=== PATIENT | male | born 1955 | race Caucasian/White ===

== ENCOUNTER 2016-02-13 12:55 | Inpatient (IN) | payer BC ==
[~2016-02-13] VITALS: Ht 182.9 cm; Wt 94.0 kg
[~2016-02-13 12:55] MED LIST: AMLO-147 PO; ATOR80TA75 PO; CARV3.1260 PO; ISOS10TA2 PO; NIT4 SL; RANO500T2 PO; RIVA10TA PO
[2016-02-13 12:59] VITALS: Ht 182.9 cm; Wt 94.0 kg
--- NOTE | 2016-02-13 15:29 | EN ---
Date/Time of Note Date/Time of Note DATE: 02/13/16 TIME: 15:23 ER Progress Note Patient is a 60-year-old male who originally complains of left-sided headache and right leg pain for 25 days. He was seen in all of you last week had a CAT scan of his head which was okay and his Tylenol. He has a history of 7 stents in 4 MIs and history of coronary vasospasm. His quenching car operator is Dr. Charlton. He had 2 episodes of chest pain last night and this morning, this is 2 episodes and 10 hours which is unusual for him. He usually has a chest pain once every 2 weeks. The pain was a squeezing sensation. Also has pain in his shoulder since yesterday and in his neck as well. He had TIA 3 years ago he is concerned that his headache is a TIA or stroke or other. He does not work he is on Social Security disability. Yesterday he did take 2 nitroglycerin but by the time he took the nitroglycerin his chest pain had already resolved. Chest tightness last 2-3 minutes. He is on atorvastatin Plavix Xarelto Imdur and amlodipine. Because of his multiple risk factors he is being transferred to the ER one for higher level of care. dr. de la torre is accepting. CARMEN SIMS DO Feb 13, 2016 15:28
[2016-02-13 17:02] LABS: BASOPHIL # 0.1 10^3/ul (0.0-0.1); BASOPHILS % 0.9 % (0.0-2.0); EOSINOPHILS # 0.3 10^3/ul (0.0-0.5); EOSINOPHILS % 2.5 % (0.0-7.0); HEMATOCRIT 48.7 % (42.0-52.0); HEMOGLOBIN 16.1 g/dl (14.0-18.0); LYMPHOCYTES # 2.4 10^3/ul (0.8-2.9); LYMPHOCYTES % 23.6 % (15.0-51.0); MEAN CORPUSCULAR HEMOGLOBIN 27.3 pg (29.0-33.0); MEAN CORPUSCULAR VOLUME 82.6 fl (82.0-101.0); MEAN PLATELET VOLUME 7.9 fl (7.4-10.4); MONOCYTE # 0.5 10^3/ul (0.3-0.9); MONOCYTES % 5.5 % (0.0-11.0); NEUTROPHIL # 6.7 10^3/ul (1.6-7.5); NEUTROPHILS % 67.5 % (39.0-77.0); PLATELET COUNT 220 10^3/UL (140-440); RED BLOOD COUNT 5.89 10^6/ul (4.70-6.10); RED CELL DISTRIBUTION WIDTH 15.1 % (11.5-14.5)
[2016-02-13 17:06] LABS: CONDITION 1; LH ANALYZER COMMENTS 1
[2016-02-13 17:09] LABS: CHLORIDE 105 mmol/L (97-110); INR 0.95; PARTIAL THROMBOPLASTIN TIME 26.2 Sec (25.0-35.0); PROTIME 12.7 Sec (12.2-14.2); SODIUM 143 mmol/L (135-144)
--- NOTE | 2016-02-13 17:09 | RADRPT ---
PROCEDURE: XR Chest. CLINICAL INDICATION: Chest pain TECHNIQUE: Chest AP portable. COMPARISON: 03/23/2015 FINDINGS: The mediastinal structures are unremarkable. The heart is normal in size and configuration. The pu lmonary vascularity is normal. The lung car are unremarkable. No consolidation is identified. The pleural spaces are unremarkable. The axial skeleton is unremarkable. IMPRESSION: No active intrathoracic disease. RPTAT: HGDB .Dm Sanderson MD, MD Date Time Electronically viewed and signed by .Dm Sanderson MD, MD on 02/13/2016 17:09 .B/
[2016-02-13 17:27] LABS: TROPONIN-I < 0.012 ng/ml (0.00-0.12)
[2016-02-13] MEDS ORDERED: morphine 4 MG/ML VIAL IV STA ×2 (17:29→18:10)
[2016-02-13 18:13] LABS: CREATININE 0.83 mg/dl (0.61-1.24)
[2016-02-13 18:14] LABS: ANION GAP 16 (8-16); BLOOD UREA NITROGEN 13 mg/dl (7-20); CALCIUM 9.1 mg/dl (8.4-10.2); CARBON DIOXIDE 26 mmol/L (21-31); GLUCOSE 89 mg/dl (70-220)
--- NOTE | 2016-02-13 18:33 | RADRPT ---
PROCEDURE: CT Head without. CLINICAL INDICATION: 50-year-old male with headache. TECHNIQUE: The study was performed utilizing a multi-slice, multidetector CT scanner. Direct spira l 1 mm axial sections were obtained through the head without the use of intravenous contrast materia l. Coronal and sagittal reformations were obtained. The images were reviewed on a PACS workstation. RADIATION DOSE: CTDIvol: 43.6 mGyDLP: 720.2 mGy-cm COMPARISON: 12/22/2015 FINDINGS: There is no intracranial hemorrhage, extra-axial fluid collection, mass lesion, midline shift or hyd rocephalus. The ventricles, sulci and cisterns are within normal limits. There are mild periventri cular and subcortical white matter hypodensity, likely related to chronic microangiopathic changes. The snider-white matter differentiation is preserved. The basal cisterns are patent. The midline st ructures are intact. The orbits, calvarium and extracranial soft tissues are normal in appearance. There are mild to moderate inflammatory changes of the bilateral ethmoid air cells. The frontal sin uses are normally aerated. The mastoid air cells and middle ear cavities are normally aerated. IMPRESSION: 1. No acute intracranial abnormality. No intracranial hemorrhage, extra-axial fluid collection, ma ss lesion or hydrocephalous. 2. Stable mild periventricular and subcortical white matter lesions, likely related to chronic micr oangiopathic changes. 3. Mild to moderate inflammatory changes of the paranasal sinuses. RPTAT: HGAS .Corey Yang MD, Date Time Electronically viewed and signed by .Corey Yang MD, MD on 02/13/2016 18:33 .S/
--- NOTE | 2016-02-13 18:48 | ERA ---
ER Documentation Chief Complaint Date/Time DATE: 02/13/16 TIME: 18:46 Chief Complaint vanessa and left leg pain HPI This is a 60-year-old male who presents to the emergency room and was originally seen in fast track and subsequently transferred to the main ER for evaluation. This patient presented initially for evaluation of a headache, chest pain, and right leg pain. The patient states that he has a history of multiple heart attacks, multiple stents, and states that he came to the ER for evaluation of this chest pain which she localizes to the center of his chest and describes as an achy pain with no radiation. ROS All systems reviewed and are negative except as per history of present illness. Medications Home Meds Active Scripts Isosorbide Dinitrate* (Isordil*) 10 Mg Tablet, 10 MG PO TID for 30 Days, TAB Prov:ALEJANDRA HOPKINS 01/12/16 Ranolazine* (Ranexa*) 500 Mg Tab.sr.12h, 500 MG PO Q12 for 30 Days, TAB Prov:ALEJANDRA HOPKINS 01/12/16 Carvedilol* (Carvedilol*) 3.125 Mg Tablet, 3.125 MG PO BID for 30 Days, TAB Prov:ALEJANDRA HOPKINS 01/12/16 Reported Medications Nitroglycerin* (Nitrostat*) 0.4 Mg Tab.subl, 0.4 MG SL Q5MIN Y for CHEST PAIN, BOTTLE 09/21/15 Atorvastatin* (Atorvastatin*) 80 Mg Tablet, 80 MG PO QHS, #30 TAB 08/20/15 Amlodipine Besylate* (Amlodipine Besylate*) 10 Mg Tablet, 10 MG PO DAILY, #30 TAB 08/20/15 Rivaroxaban* (Xarelto*) 10 Mg Tablet, 10 MG PO DAILY, TAB 08/20/15 Allergies Allergies: Coded Allergies: No Known Allergy (Unverified , 01/08/16) PMhx/Soc Anesthesia Reaction: No Hx Neurological Disorder: No Hx Respiratory Disorders: Yes (copd) Hx Psychiatric Problems: No Hx Miscellaneous Medical Probl: No Hx Alcohol Use: No Hx Substance Use: No Hx Tobacco Use: Yes Smoking Status: Current some day smoker Physical Exam Vitals Vital Signs Date Time Temp Pulse Resp B/P Pulse Ox O2 Delivery O2 Flow Rate FiO2 02/13/16 18:15 67 18 129/80 98 Room Air 02/13/16 16:53 98.1 79 18 135/91 98 Room Air 02/13/16 12:59 98.5 98 18 123/57 96 Physical Exam INITIAL VITAL SIGNS: Reviewed by me GENERAL: The patient is well developed and appropriate for usual state of health in no apparent distress HEENT: Pupils equal, round, and reactive to light. EOMI. There is no scleral icterus. NECK: C-spine is soft and supple, there is no meningismus. There is no cervical lymphadenopathy. LUNGS: Clear to auscultation bilaterally. There are no rales, wheezes or rhonchi. HEART: Regular rate and rhythm, no murmurs, clicks, rubs or gallops. ABDOMEN: Soft, non-tender, non-distended. There are bowel sounds in all four quadrants. No rebound or guarding. EXTREMITIES: There is no peripheral cyanosis or edema. No focal swelling or erythema. NEUROLOGICAL: The patient moves all four extremities with 5/5 strength. Cranial nerves II - XII are intact. Normal gait. Alert and oriented SKIN: There is no apparent rash or petechiae. HEME/LYMPHATIC: There is no evidence of excessive bruising or lymphedema. PSYCHIATRIC: The patient does not appear anxious or depressed. Result Diagram: 02/13/16 1650 02/13/16 1650 Results 24 hrs Laboratory Tests Test 02/13/16 16:50 Activated Partial Thromboplast Time 26.2Sec Anion Gap 16 Basophils # 0.110^3/ul Basophils % 0.9% Blood Morphology Comment Blood Urea Nitrogen 13mg/dl Calcium Level 9.1mg/dl Carbon Dioxide Level 26mmol/L Chloride Level 105mmol/L Creatinine 0.83mg/dl Eosinophils # 0.310^3/ul Eosinophils % 2.5% Glucose Level 89mg/dl Hematocrit 48.7% Hemoglobin 16.1g/dl INR International Normalized Ratio 0.95 Lymphocytes # 2.410^3/ul Lymphocytes % 23.6% Mean Corpuscular Hemoglobin 27.3pg Mean Corpuscular Hemoglobin Concent 33.0g/dl Mean Corpuscular Volume 82.6fl Mean Platelet Volume 7.9fl Monocytes # 0.510^3/ul Monocytes % 5.5% Neutrophils # 6.710^3/ul Neutrophils % 67.5% Nucleated Red Blood Cells # 0.010^3/ul Nucleated Red Blood Cells % 0.0/100WBC Platelet Count 51519^3/UL Potassium Level 4.0mmol/L Prothrombin Time 12.7Sec Prothrombin Time Ratio 1.0 Red Blood Count 5.8910^6/ul Red Cell Distribution Width 15.1% Sodium Level 143mmol/L Troponin I < 0.012ng/ml White Blood Count 10.010^3/ul Current Medications Medications (Trade) Dose Ordered Sig/Bre Route PRN Reason Start Time Stop Time Status Last Admin Dose Admin Morphine Sulfate (morphine) 4 mg ONCE STAT IV 02/13/16 17:29 02/13/16 17:30 DC 02/13/16 17:35 Morphine Sulfate (morphine) 4 mg ONCE STAT IV 02/13/16 18:10 02/13/16 18:11 DC 02/13/16 18:44 Procedures/MDM EKG: Rate/Rhythm: [Normal Sinus Rhythm] QRS, ST, T-waves: [No changes consistent w/ acute ischemia] Impression: [No evidence of ischemia or arrhythmia] Chest X-ray 1V Interpreted by me: Soft Tissue: No acute abnormalities Bones: No acute abnormalities Mediastinum/Cardiac Silhouette/Lungs: [No acute abnormalities] CT head without: No bleed, no stroke This 60-year-old male presents to the emergency room for evaluation of chest pain and headache. This patient does have a significant cardiac history. I did look in his previous medical records and it appears that he was admitted in the recent past and was supposed to undergo a cardiac catheterization however our Residential Substance Abuse Counselor was nonfunctional at that time. This patient was not able to schedule an outpatient angiogram with cardiology and presents today for a repeat a chest pain. Given this patient's history, and risk factors this patient will be placed in for admission at this time for possible elective angiogram for evaluation of coronary vessels, and previous stents. Departure Diagnosis: Primary Impression: Chest pain Condition: JUAN Watson DO Feb 13, 2016 18:48
[2016-02-13] MEDS ORDERED: ACETAMINOPHEN 325 MG TAB PO PRN ×2 (19:00→21:30)
[2016-02-13] MEDS ORDERED: ONDANSETRON 4 MG INJ IV PRN (19:00)
[2016-02-13] MEDS ORDERED: NITROGLYCERIN (SL) 0.4 MG TAB SL PRN (21:30)
[2016-02-13] MEDS ORDERED: NACL 0.9% 3 ML SYG IV SCH (21:30)
[2016-02-13 22:46] LABS: CREATINE KINASE 32 IU/L (23-200)
[2016-02-13 22:58] LABS: CK-MB 0.66 ng/ml (0.0-2.4)
[2016-02-13 23:03] LABS: TROPONIN-I < 0.012 ng/ml (0.00-0.12)
[2016-02-13] MEDS: morphine 2 MG INJ IV PRN (23:04)
[2016-02-13] MEDS: ONDANSETRON 4 MG INJ IV PRN (23:04)
[2016-02-14] VITALS (9 sets, daily range): BP systolic 93–101; BP diastolic 54–61; PULSE 63–77; RESP 16–69; TEMP 97.9
[2016-02-14] MEDS: morphine 2 MG INJ IV PRN ×6 (03:09→23:59)
[2016-02-14] MEDS: ONDANSETRON 4 MG INJ IV PRN (03:09)
[2016-02-14 06:07] LABS: BASOPHILS % 0.4 % (0.0-2.0); EOSINOPHILS # 0.3 10^3/ul (0.0-0.5); EOSINOPHILS % 3.6 % (0.0-7.0); HEMATOCRIT 47.3 % (42.0-52.0); HEMOGLOBIN 15.6 g/dl (14.0-18.0); LYMPHOCYTES # 2.4 10^3/ul (0.8-2.9); LYMPHOCYTES % 24.1 % (15.0-51.0); MEAN CORPUSCULAR HEMOGLOBIN 27.4 pg (29.0-33.0); MEAN CORPUSCULAR VOLUME 83.2 fl (82.0-101.0); MONOCYTE # 0.6 10^3/ul (0.3-0.9); MONOCYTES % 6.1 % (0.0-11.0); NEUTROPHIL # 6.4 10^3/ul (1.6-7.5); NEUTROPHILS % 65.8 % (39.0-77.0); PLATELET COUNT 210 10^3/UL (140-440); RED BLOOD COUNT 5.68 10^6/ul (4.70-6.10); RED CELL DISTRIBUTION WIDTH 15.9 % (11.5-14.5); UNCORRECTED WBC 9.8 10^3/ul (4.8-10.8); WHITE BLOOD COUNT 9.8 10^3/ul (4.8-10.8)
[2016-02-14 06:12] LABS: CONDITION 1; LH ANALYZER COMMENTS 1
[2016-02-14 06:30] LABS: ALBUMIN 3.5 g/dl (3.3-4.9); CREATINE KINASE 30 IU/L (23-200)
[2016-02-14 06:31] LABS: POTASSIUM 4.4 mmol/L (3.5-5.1)
[2016-02-14 06:33] LABS: BILIRUBIN,INDIRECT 0.5 mg/dl (0-1.1); BILIRUBIN,TOTAL 0.5 mg/dl (0.2-1.3); CREATININE 0.8 mg/dl (0.61-1.24)
[2016-02-14 06:34] LABS: ALBUMIN/GLOBULIN RATIO 1.34; CALCIUM 8.9 mg/dl (8.4-10.2); TOTAL PROTEIN 6.1 g/dl (6.1-8.1)
[2016-02-14 06:49] LABS: CK-MB 0.63 ng/ml (0.0-2.4); TROPONIN-I < 0.010 ng/ml (0.00-0.12)
[2016-02-14] MEDS: FAMOTIDINE 20 MG INJ IV SCH ×2 (09:01→19:42)
[2016-02-14] MEDS: ENOXAPARIN 30 MG/0.3 ML SYG SC SCH (09:01)
[2016-02-14] MEDS: RANOLAZINE (SR) 500 MG TAB PO SCH ×2 (09:01→19:42)
[2016-02-14] MEDS: ASPIRIN 81 MG TAB PO SCH (09:02)
[2016-02-14] MEDS: ISOSORBIDE DINITRATE 10 MG TAB PO SCH ×3 (09:03→19:46)
[2016-02-14] MEDS: AMLODIPINE 10 MG TAB PO SCH (09:03)
--- NOTE | 2016-02-14 10:55 | CONS ---
DATE OF ADMISSION: 02/13/2016 DATE OF CONSULTATION: 02/14/2016 REASON FOR CONSULTATION: Chest pain/acute coronary syndrome, as well as leg pain; rule out claudica tion. REQUESTING PHYSICIAN: Dr. Kelle Chew. HISTORY OF PRESENT ILLNESS: Mr. 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 Initially upon arrival, temperature 98.5, blood pressure 12 3/57, pulse 98, respiratory rate 18, saturating 96%. The patient's labs revealed a white count of 1 0.0, hemoglobin 6.1, platelet count 220. Sodium 143, potassium 4.0, creatinine 0.83, BUN 13. Tropo misa negative. INR 0.95. The patient underwent a chest x-ray revealing no acute cardiopulmonary abnormalities and a head CT revealed no acute intracranial abnormality and no intracranial hemorrhage, stable mild periventricul ar subcortical white matter lesions, mild to moderate inflammatory changes of the paranasal sinuses. The patient's electrocardiogram revealed sinus rhythm at a rate of 76, normal axis, normal interva ls with isolated T-wave flattening in aVL. The patient subsequently has been admitted to the floor and since admit to floor, has had negative troponins x2. The patient states he has had now recurren t episodes of substernal chest pain x2 lasting seconds to minutes at rest, described as a stabbing t o pressure-like component. Given these findings, cardiology consult has been requested. The patien t does continue to complain of leg pain and headache. PAST MEDICAL HISTORY: As above in HPI. MEDICATIONS CURRENTLY IN HOSPITAL: 1. Lipitor 80 mg at bedtime. 2. Aspirin 81 mg daily. 3. Pepcid 20 mg q.12h. 4. Lovenox 30 mg subcutaneous daily. 5. Norvasc 10 mg daily. 6. Carvedilol 3.125 mg p.o. b.i.d. 7. Isordil 10 mg p.o. t.i.d. 8. Ranexa 5 mg q.12h. 9. Zofran p.r.n. 10. Tylenol p.r.n. 11. Morphine p.r.n. 12. Sublingual nitroglycerin p.r.n. ALLERGIES: NO KNOWN DRUG ALLERGIES. SOCIAL HISTORY: Positive tobacco, social ETOH, no illicit drug use. FAMILY HISTORY: No history of sudden cardiac or early CAD. REVIEW OF SYSTEMS: As above in HPI. CONSTITUTIONAL: No fevers, chills. PULMONARY: No current shortness of breath. CARDIOVASCULAR: Intermittent chest pain. GASTROINTESTINAL: No vomiting. GENITOURINARY: No hematuria. MUSCULOSKELETAL: Degenerative joint disease. PSYCHIATRIC: The patient denies depression. NEUROLOGIC: No documented history of CVA. PHYSICAL EXAMINATION VITAL SIGNS: Temperature of 98, blood pressure most recently 109/77, pulse 64, respiratory rate 20, saturating 95% on 2 liters. GENERAL: The patient is alert, awake, complaining of headache, leg pain, intermittent chest pain. NECK: JVP approximately 8 cm water. CHEST: Fair air movement throughout. HEART: Regular rate and rhythm. Normal S1, S2, with a I/ systolic murmur, nondisplaced PMI. ABDOMEN: Positive bowel sounds, soft. EXTREMITIES: No pitting edema, 1+ pulses bilaterally, posterior tibial. LABORATORY DATA: Most recent from today, troponin negative x3. Sodium 144, potassium 4.4, creatini ne 0.8. AST 24, ALT 39, white count 9.8, hemoglobin 15.6, platelet count of 210. INR 0.95. IMAGING STUDIES: As above in HPI. No further imaging studies for my review at this time. ECG: As above in HPI. No further electrocardiograms for my review at this time. IMPRESSION: 1. Chest pain, assess for acute coronary syndrome, somewhat atypical at this time. 2. Abnormal electrocardiogram with isolated T-wave flattening in aVL. 3. Leg pain, rule out claudication, peripheral arterial disease. 4. Hypertension with borderline hypotension at this time on multiple antihypertensives and antiangi nal medications. 5. Headache. 6. Anxiety. 7. History of vasospastic angina. 8. History of percutaneous transluminal coronary angioplasty and stent placement with stents patent by catheterization in May 2015. RECOMMENDATIONS: 1. At this time, would maintain the patient on telemetry monitoring to follow rhythm and rate contr ol closely. 2. Recheck serial EKGs to assess for any significant ongoing changes. EKG in the morning, EKG for complaints of chest pain or change in rhythm. 3. Continue the patient's baseline aspirin and will additionally continue the patient's baseline st atin. 4. Continue the patient's baseline antianginal medications ____ and Isordil as well as calcium lamas romaine blockers and beta blockers. Follow the patient's blood pressure closely. 5. We will check a lower extremity arterial ultrasound to assess for any significant peripheral art erial disease lending to pain and patient will have ongoing evaluation for headache per PMD and alte rnative consultations. The patient is status post most recent echo December 2015, at that time revealing a preserved EF of 50% with associated diastolic dysfunction. We will additionally consider stress testing in this [facility] to further assess for the possibility of recurrent significant obstructive coronary artery dise ase lending to his symptoms of chest pain. Thank you for allowing me to take part in the care of this patient. I will continue to follow very closely with you with further recommendations to be made as the patient progresses through his [facility] clinical course. Dictated By: EDUARDO BARNETT/ANDRA Conf#: [id number] DID#: [id number] CC: CESAR SNYDER MD;*EndCC*
--- NOTE | 2016-02-14 12:16 | HP ---
Date/Time of Note Date/Time of Note DATE: 02/14/16 TIME: 12:14 Assessment/Plan VTE Prophylaxis VTE Prophylaxis Intervention: LMWH Lines/Catheters IV Catheter Type (from Nrs): Saline Lock Assessment/Plan Chief Complaint/Hosp Course 1) chest pain, coronary artery disease - work up per cardiology Problems: HPI/ROS Admit Date/Time Admit Date/Time Feb 13, 2016 at 18:46 Hx of Present Illness Patient with hypertension, hypercholesterolemia, coronary artery disease come in with chest pain. Patient was recently to have angiogram but was cancelled because of logistic difficulties. Patient sees Dr. Charlton for cardiology. PMH/Family/Social Past Medical History Medical History: coronary artery disease, high cholesterol, hypertension Past Surgical History Past Surgical Hx: noncontributory Social History Smoking Status: Current every day smoker Exam/Review of Systems Vital Signs Vitals Vital Signs Date Time Temp Pulse Resp B/P Pulse Ox O2 Delivery O2 Flow Rate FiO2 02/14/16 11:47 97.8 81 18 101/58 92 02/14/16 08:30 Nasal Cannula 2.0 Exam Constitutional: alert, well developed Head: atraumatic, normocephalic Neck: supple Respiratory: clear to auscultation Cardiovascular: regular rate and rhythm Gastrointestinal: non-tender, soft Labs Result Diagram: 02/14/16 0535 02/14/16 0535 Medications Medications Current Medications Ondansetron HCl (Zofran Inj) 4 mg Q6H PRN IV NAUSEA AND/OR VOMITING Last administered on 02/14/16 03:09; Admin Dose 4 MG; Start 02/13/16 at 21:30 Aspirin (Aspirin) 81 mg DAILY PO Last administered on 02/14/16 09:02; Admin Dose 81 MG; Start 02/14/16 at 09:00 Acetaminophen (Tylenol Tab) 650 mg Q6H PRN PO PAIN LEVEL 1-3 OR FEVER; Start at 21:30 Morphine Sulfate (morphine) 2 mg Q4H PRN IV PAIN LEVEL 7-10 Last administered on 02/14/16 11:19; Admin Dose 2 MG; Start 02/13/16 at 21:30 Famotidine (Pepcid Iv) 20 mg Q12 IV Last administered on 02/14/16 09:01; Admin Dose 20 MG; Start 02/14/16 at 09:00 Enoxaparin Sodium (Lovenox) 30 mg DAILY SC Last administered on 02/14/16 09:01 ; Admin Dose 30 MG; Start 02/14/16 at 09:00 Amlodipine Besylate (Norvasc) 10 mg DAILY PO Last administered on 02/14/16 09: 03; Admin Dose 10 MG; Start 02/14/16 at 09:00 Atorvastatin Calcium (Lipitor) 80 mg QHS PO ; Start 02/14/16 at 21:00 Carvedilol (Coreg) 3.125 mg BID PO Last administered on 02/14/16 09:02; Admin Dose 3.125 MG; Start 02/14/16 at 09:00 Isosorbide Dinitrate (Isordil) 10 mg TID PO Last administered on 02/14/16 09:03 ; Admin Dose 10 MG; Start 02/14/16 at 09:00 Nitroglycerin (Nitroglycerin (Sl Tab) 0.4 Mg) 1 tab [id number] PRN SL CHEST PAIN ; Start 02/13/16 at 21:30 Ranolazine (Ranexa) 500 mg Q12 PO Last administered on 02/14/16 09:01; Admin Dose 500 MG; Start 02/14/16 at 09:00 JORGE CASTILLO Feb 14, 2016 12:16
--- NOTE | 2016-02-14 17:25 | RADRPT ---
PROCEDURE: US bilateral lower extremity arteries. CLINICAL INDICATION: Bilateral leg pain. Claudication that interferes significantly with the collette ent's lifestyle. TECHNIQUE: Multiple longitudinal and transverse images of the bilateral lower extremity arteries w ere obtained with snider scale, pulsed Doppler, and color Doppler imaging. COMPARISON: No prior studies are available for comparison. FINDINGS: Right DIGITAL MARKETING ASSISTANT:98 cm/sec PSFA:60 cm/sec MSFA:72 cm/sec DSFA:84 cm/sec POP:58 cm/sec NETWORKING SPECIALIST:63 cm/sec DPA:29 cm/sec Left DIGITAL MARKETING ASSISTANT:84 cm/sec PSFA:65 cm/sec MSFA:66 cm/sec DSFA:77 cm/sec POP:57 cm/sec NETWORKING SPECIALIST:71 cm/sec DPA:58 cm/sec The right ankle-brachial index is 1.0 and the left ankle-brachial index is 1.0. There is normal triphasic flow throughout bilaterally. There is no plaque, stenosis, or occlusion. IMPRESSION: 1. Normal bilateral lower extremity arterial Doppler. RPTAT: QQ .Viraj Ulrich MD, Date Time Electronically viewed and signed by .Viraj Ulrich MD, on 02/14/2016 17:25 .R/
[2016-02-14] MEDS: ATORVASTATIN 80 MG TAB PO SCH (22:24)
[2016-02-15] VITALS (11 sets, daily range): BP systolic 96–121; BP diastolic 60–68; PULSE 67–80; RESP 16–18
[2016-02-15] MEDS: morphine 2 MG INJ IV PRN ×4 (04:00→18:57)
[2016-02-15] MEDS: ASPIRIN 81 MG TAB PO SCH (08:06)
[2016-02-15] MEDS: RANOLAZINE (SR) 500 MG TAB PO SCH ×2 (08:06→20:52)
[2016-02-15] MEDS: FAMOTIDINE 20 MG INJ IV SCH ×2 (08:07→20:51)
[2016-02-15 08:11] LABS: CHOLESTEROL 174 mg/dl (100-200); TRIGLYCERIDES 220 mg/dl (0-149)
[2016-02-15 08:12] LABS: CHOL/HDL RATIO 8.2 RATIO; HDL CHOLESTEROL 21 mg/dl (30-78)
[2016-02-15 08:17] LABS: TROPONIN-I < 0.012 ng/ml (0.00-0.12)
[2016-02-15] MEDS: ENOXAPARIN 30 MG/0.3 ML SYG SC SCH (08:20)
[2016-02-15] MEDS: ISOSORBIDE DINITRATE 10 MG TAB PO SCH ×3 (08:22→20:52)
[2016-02-15] MEDS: AMLODIPINE 10 MG TAB PO SCH (08:23)
--- NOTE | 2016-02-15 12:26 | CONS ---
Date/Time of Note Date/Time of Note DATE: 02/15/16 TIME: 12:22 Assessment/Plan Assessment/Plan Chief Complaint/Hosp Course IMPRESSION: 1. Chest pain, assess for acute coronary syndrome, somewhat atypical at this time.-negative troponin x 3 2. Abnormal electrocardiogram with isolated T-wave flattening in aVL. 3. Leg pain, rule out claudication, peripheral arterial disease. 4. Hypertension with borderline hypotension at this time on multiple antihypertensives and antianginal medications. 5. Headache. 6. Anxiety. 7. History of vasospastic angina. 8. History of percutaneous transluminal coronary angioplasty and stent placement with stents patent by catheterization in May 2015. Recc: -Tele -Continue norvasc/oral nitrtaes/BB as tolerated and weill decrease dose to allow to better tolerate -Continue asa/statin -Stress test today Problems: Consultation Date/Type/Reason Admit Date/Time Feb 13, 2016 at 18:46 Initial Consult Date 02/15/2016 Type of Consultation: Cardiology Reason for Consultation Chest pain Referring Provider: JORGE CASTILLO Exam/Review of Systems Vital Signs Vitals Vital Signs Date Time Temp Pulse Resp B/P Pulse Ox O2 Delivery O2 Flow Rate FiO2 02/15/16 08:14 71 02/15/16 07:33 98.1 18 96/61 96 02/14/16 08:30 Nasal Cannula 2.0 Intake and Output 02/14/16 02/14/16 02/15/16 15:00 23:00 07:00 Intake Total 640 ml 700 ml Balance 640 ml 700 ml Exam Review of Systems: CONSTITUTIONAL: No fevers, chills. PULMONARY: No sob CARDIOVASCULAR: intermittent chest pain/palpitations GASTROINTESTINAL: No nausea/vomiting. GENITOURINARY: No hematuria/dysuria. MUSCULOSKELETAL: No myagias/arthalgias. PSYCHIATRIC: The patient denies depression. NEUROLOGIC: No weakness Constitutional: alert, oriented Psych: no complaints Head: normocephalic ENMT: mucosa pink and moist Neck: jvd (9 cm water), supple Respiratory: clear to auscultation Cardiovascular: regular rate and rhythm Gastrointestinal: non-tender, soft Musculoskeletal: muscle tone (normal) Extremities: edema (none) Neurological: other (No focal deficits) Results Result Diagram: 02/14/16 0535 02/14/16 0535 Results 24 hrs Laboratory Tests Test 02/15/16 06:45 Cholesterol Level 174 Cholesterol/HDL Ratio 8.2 HDL Cholesterol 21 L LDL Cholesterol, Calculated 109 Triglycerides Level 220 H Troponin I < 0.012 Medications Medications Current Medications Ondansetron HCl (Zofran Inj) 4 mg Q6H PRN IV NAUSEA AND/OR VOMITING Last administered on 02/14/16 03:09; Admin Dose 4 MG; Start 02/13/16 at 21:30 Aspirin (Aspirin) 81 mg DAILY PO Last administered on 02/15/16 08:06; Admin Dose 81 MG; Start 02/14/16 at 09:00 Acetaminophen (Tylenol Tab) 650 mg Q6H PRN PO PAIN LEVEL 1-3 OR FEVER; Start at 21:30 Morphine Sulfate (morphine) 2 mg Q4H PRN IV PAIN LEVEL 7-10 Last administered on 02/15/16 08:13; Admin Dose 2 MG; Start 02/13/16 at 21:30 Famotidine (Pepcid Iv) 20 mg Q12 IV Last administered on 02/15/16 08:07; Admin Dose 20 MG; Start 02/14/16 at 09:00 Enoxaparin Sodium (Lovenox) 30 mg DAILY SC Last administered on 02/15/16 08:20 ; Admin Dose 30 MG; Start 02/14/16 at 09:00 Amlodipine Besylate (Norvasc) 10 mg DAILY PO Last administered on 02/14/16 09: 03; Admin Dose 10 MG; Start 02/14/16 at 09:00 Atorvastatin Calcium (Lipitor) 80 mg QHS PO Last administered on 02/14/16 22:24 ; Admin Dose 80 MG; Start 02/14/16 at 21:00 Carvedilol (Coreg) 3.125 mg BID PO Last administered on 02/14/16 19:46; Admin Dose 3.125 MG; Start 02/14/16 at 09:00 Isosorbide Dinitrate (Isordil) 10 mg TID PO Last administered on 02/14/16 19:46 ; Admin Dose 10 MG; Start 02/14/16 at 09:00 Nitroglycerin (Nitroglycerin (Sl Tab) 0.4 Mg) 1 tab [id number] PRN SL CHEST PAIN ; Start 02/13/16 at 21:30 Ranolazine (Ranexa) 500 mg Q12 PO Last administered on 02/15/16t 08:06; Admin Dose 500 MG; Start 02/14/16 at 09:00 EDUARDO ROME Feb 15, 2016 12:26
--- NOTE | 2016-02-15 12:27 | PN ---
Date/Time of Note Date/Time of Note DATE: 02/15/16 TIME: 12:26 Assessment/Plan VTE Prophylaxis VTE Prophylaxis Intervention: LMWH Lines/Catheters IV Catheter Type (from Nrs): Saline Lock Assessment/Plan Chief Complaint/Hosp Course 1) chest pain, coronary artery disease - work up per cardiology Problems: Subjective 24 Hr Interval Summary Free Text/Dictation Patient is away from room, having stress test Exam/Review of Systems Vital Signs Vitals Vital Signs Date Time Temp Pulse Resp B/P Pulse Ox O2 Delivery O2 Flow Rate FiO2 02/15/16 12:24 69 02/15/16 07:33 98.1 18 96/61 96 02/14/16 08:30 Nasal Cannula 2.0 Intake and Output 02/14/16 02/14/16 02/15/16 15:00 23:00 07:00 Intake Total 640 ml 700 ml Balance 640 ml 700 ml Exam Unable to examine as he is away from room Results Result Diagram: 02/14/16 0535 02/14/16 0535 Results 24 hrs Laboratory Tests Test 02/15/16 06:45 Cholesterol Level 174 Cholesterol/HDL Ratio 8.2 HDL Cholesterol 21 L LDL Cholesterol, Calculated 109 Triglycerides Level 220 H Troponin I < 0.012 Medications Medications Current Medications Ondansetron HCl (Zofran Inj) 4 mg Q6H PRN IV NAUSEA AND/OR VOMITING Last administered on 02/14/16 03:09; Admin Dose 4 MG; Start 02/13/16 at 21:30 Aspirin (Aspirin) 81 mg DAILY PO Last administered on 02/15/16 08:06; Admin Dose 81 MG; Start 02/14/16 at 09:00 Acetaminophen (Tylenol Tab) 650 mg Q6H PRN PO PAIN LEVEL 1-3 OR FEVER; Start at 21:30 Morphine Sulfate (morphine) 2 mg Q4H PRN IV PAIN LEVEL 7-10 Last administered on 02/15/16 08:13; Admin Dose 2 MG; Start 02/13/16 at 21:30 Famotidine (Pepcid Iv) 20 mg Q12 IV Last administered on 02/15/16 08:07; Admin Dose 20 MG; Start 02/14/16 at 09:00 Enoxaparin Sodium (Lovenox) 30 mg DAILY SC Last administered on 02/15/16 08:20 ; Admin Dose 30 MG; Start 02/14/16 at 09:00 Amlodipine Besylate (Norvasc) 10 mg DAILY PO Last administered on 02/14/16 09: 03; Admin Dose 10 MG; Start 02/14/16 at 09:00 Atorvastatin Calcium (Lipitor) 80 mg QHS PO Last administered on 02/14/16 22:24 ; Admin Dose 80 MG; Start 02/14/16 at 21:00 Carvedilol (Coreg) 3.125 mg BID PO Last administered on 02/14/16 19:46; Admin Dose 3.125 MG; Start 02/14/16 at 09:00 Isosorbide Dinitrate (Isordil) 10 mg TID PO Last administered on 02/14/16 19:46 ; Admin Dose 10 MG; Start 02/14/16 at 09:00 Nitroglycerin (Nitroglycerin (Sl Tab) 0.4 Mg) 1 tab [id number] PRN SL CHEST PAIN ; Start 02/13/16 at 21:30 Ranolazine (Ranexa) 500 mg Q12 PO Last administered on 02/15/16 08:06; Admin Dose 500 MG; Start 02/14/16 at 09:00 JORGE CASTILLO Feb 15, 2016 12:27
[2016-02-15] MEDS ORDERED: REGADENOSON 0.4 MG/5 ML SYG ONE (12:59)
--- NOTE | 2016-02-15 13:40 | RADRPT ---
Vent Rate: 72 bpm RR Interval: 0 msec MI Interval: 184 msec QRS Duration: 90 msec QT Interval: 386 msec QTC Interval: 422 msec P-R-T [place]: 67 - 76 - 66 degrees Normal sinus rhythm Normal ECG Electronically Signed By: Ez Doyle [id number]
--- NOTE | 2016-02-15 14:00 | CARRPT ---
DATE OF PROCEDURE: 02/15/2016 LEXISCAN CARDIAC STRESS TEST REASON FOR LEXISCAN STRESS TEST: Chest pain, assess for ischemia. BASELINE VITAL SIGNS AND ELECTROCARDIOGRAM: Pulse 68, blood pressure 112/73. Electrocardiogram rev eals normal sinus rhythm, rate of 68, normal axis, normal intervals, isolated T-wave flattening in a VL as single PVC. PROCEDURE: The patient underwent standard Lexiscan infusion protocol over 10 seconds followed by ra diolabeled tracer. The patient's test was stopped due to completion of protocol. Maximal achieved blood pressure during the test 112/76. Maximum heart rate during the test 105. ELECTROCARDIOGRAM FINDINGS: The patient did not develop any new Lexiscan-induced ST or T-wave brown es from baseline abnormalities. Had had occasional PVCs. SYMPTOMS: The patient had complaints of shortness of breath and chest pain during stress test which resolved in recovery. IMPRESSION: 1. No Lexiscan-induced ST or T-wave changes from baseline abnormalities or diagnostic cardiac ische mike. 2. Complaints of shortness of breath and chest pain during short stress test that resolved in recov becky. 3. Occasional premature ventricular contractions during stress. 4. Report of nuclear images to follow in separate dictation. Dictated By: EDUARDO BARNETT/ANDRA Conf#: [id number] DID#: [id number] CC: JORGE CASTILLO MD;*EndCC*
--- NOTE | 2016-02-15 14:09 | RADRPT ---
PROCEDURE: Lexiscan myocardial perfusion study CLINICAL INDICATION: 60 -year-old patient complaining of chest pain. TECHNIQUE: Lexiscan 0.4 mg intravenously separate acquisition gated myocardial perfusion SPECT usi ng Tc 99m Myoview mCi intravenously at stress and Tc-99m Myoview, mCi intravenously at rest was pe rformed using the rest/stress sequence. Poststress Myoview SPECT images were obtained in the supine position. COMPARISON: April 17, 2015 be FINDINGS: Perfusion images reveal an unchanged moderate size moderate in degree nonreversible perfusion defect in the inferoapical and inferior hannah. Lexiscan post stress gated SPECT images demonstrate no wall motion abnormalities. IMPRESSION: 1. The type and distribution of the scintigraphic abnormalities are most consistent with an unchang ed moderate-sized nonreversible perfusion defect in the inferoapical and inferior hannah. 2. No wall motion abnormalities. 3. The left ventricle ejection fraction at stress is 49% (prior EF was 57%). A call report was made to Dr. Charlton at 02:05 p.m. on February 15, 2016. RPTAT: HH .Sara Grier MD, Date Time Electronically viewed and signed by .Sara Grier MD, on 02/15/2016 14:09 .L/
[2016-02-15] MEDS: ONDANSETRON 4 MG INJ IV PRN (18:57)
[2016-02-15] MEDS: ATORVASTATIN 80 MG TAB PO SCH (20:52)
[2016-02-15] MEDS ORDERED: ZOLPIDEM 5 MG TAB PO PRN (23:00)
[2016-02-15] MEDS: HYDROmorphONE 1 MG/ML SYG IV PRN (23:09)
[2016-02-15] MEDS: MAGNESIUM HYDROXIDE 30ML CUP PO PRN (23:09)
[2016-02-16] VITALS (9 sets, daily range): BP systolic 100–107; BP diastolic 57–73; PULSE 63–78; RESP 16–19
[2016-02-16] MEDS: HYDROmorphONE 1 MG/ML SYG IV PRN ×4 (03:27→16:10)
[2016-02-16] MEDS: RANOLAZINE (SR) 500 MG TAB PO SCH (08:04)
[2016-02-16] MEDS: FAMOTIDINE 20 MG INJ IV SCH (08:04)
[2016-02-16] MEDS: ASPIRIN 81 MG TAB PO SCH (08:04)
[2016-02-16] MEDS: ENOXAPARIN 30 MG/0.3 ML SYG SC SCH (08:19)
[2016-02-16] MEDS: ISOSORBIDE DINITRATE 10 MG TAB PO SCH ×2 (09:00→12:06)
[2016-02-16] MEDS: AMLODIPINE 10 MG TAB PO SCH (09:00)
[2016-02-16] MEDS: ONDANSETRON 4 MG INJ IV PRN (12:02)
[2016-02-16] MEDS: MAGNESIUM HYDROXIDE 30ML CUP PO PRN (12:08)
--- NOTE | 2016-02-16 12:32 | CONS ---
Date/Time of Note Date/Time of Note DATE: 02/16/16 TIME: 12:28 Assessment/Plan Assessment/Plan Chief Complaint/Hosp Course IMPRESSION: 1. Chest pain, assess for acute coronary syndrome, somewhat atypical at this time.-negative troponin x 3. Now s/p lexiscan with no ischemia only scar. EF 49% 2. Abnormal electrocardiogram with isolated T-wave flattening in aVL. 3. Leg pain, rule out claudication, peripheral arterial disease.-Arterial GEORGE with no sig PAD and NL CHACORTA 4. Hypertension with borderline hypotension at this time on multiple antihypertensives and antianginal medications. 5. Headache. 6. Anxiety. 7. History of vasospastic angina. 8. History of percutaneous transluminal coronary angioplasty and stent placement with stents patent by catheterization in May 2015. Recc: -Tele -Continue norvasc/oral nitrates as toleratet for treatment of vasospastic angina -Will hold BB at this time given marginal BP -Continue asa/statin -resume plavix for stent patency and will d/c asa as he is on xarelto as well as outpatient for hypercoag disorder -Pain control Problems: Consultation Date/Type/Reason Admit Date/Time Feb 13, 2016 at 18:46 Initial Consult Date 02/15/2016 Type of Consultation: Cardiology Reason for Consultation Chest pain/leg pain Referring Provider: JORGE CASTILLO Exam/Review of Systems Vital Signs Vitals Vital Signs Date Time Temp Pulse Resp B/P Pulse Ox O2 Delivery O2 Flow Rate FiO2 02/16/16 12:23 63 02/16/16 11:45 98.3 18 101/65 90 02/15/16 18:00 21 02/15/16 08:30 3.0 02/14/16 08:30 Nasal Cannula Intake and Output 02/15/16 02/15/16 02/16/16 15:00 23:00 07:00 Intake Total 300 ml 400 ml Balance 300 ml 400 ml Exam Review of Systems: CONSTITUTIONAL: No fevers, chills. PULMONARY: No sob CARDIOVASCULAR: No chest pain/palpitations GASTROINTESTINAL: No nausea/vomiting. GENITOURINARY: No hematuria/dysuria. MUSCULOSKELETAL: No myagias/arthalgias. PSYCHIATRIC: The patient denies depression. NEUROLOGIC: HEadache ongoing Constitutional: alert, oriented Psych: no complaints Head: normocephalic ENMT: mucosa pink and moist Neck: jvd (8 cm water), supple Respiratory: clear to auscultation Cardiovascular: regular rate and rhythm Gastrointestinal: non-tender, soft Musculoskeletal: muscle tone (normal) Extremities: edema (none) Neurological: other (No focal deficits) Results Result Diagram: 02/14/16 0535 02/14/16 0535 Medications Medications Current Medications Ondansetron HCl (Zofran Inj) 4 mg Q6H PRN IV NAUSEA AND/OR VOMITING Last administered on 02/16/16 12:02; Admin Dose 4 MG; Start 02/13/16 at 21:30 Aspirin (Aspirin) 81 mg DAILY PO Last administered on 02/16/16 08:04; Admin Dose 81 MG; Start 02/14/16 at 09:00 Acetaminophen (Tylenol Tab) 650 mg Q6H PRN PO PAIN LEVEL 1-3 OR FEVER; Start at 21:30 Famotidine (Pepcid Iv) 20 mg Q12 IV Last administered on 02/16/16 08:04; Admin Dose 20 MG; Start 02/14/16 at 09:00 Enoxaparin Sodium (Lovenox) 30 mg DAILY SC Last administered on 02/16/16 08:19 ; Admin Dose 30 MG; Start 02/14/16 at 09:00 Amlodipine Besylate (Norvasc) 10 mg DAILY PO Last administered on 02/14/16 09: 03; Admin Dose 10 MG; Start 02/14/16 at 09:00 Atorvastatin Calcium (Lipitor) 80 mg QHS PO Last administered on 02/15/16 20:52 ; Admin Dose 80 MG; Start 02/14/16 at 21:00 Carvedilol (Coreg) 3.125 mg BID PO Last administered on 02/15/16 20:52; Admin Dose 3.125 MG; Start 02/14/16 at 09:00 Isosorbide Dinitrate (Isordil) 10 mg TID PO Last administered on 02/14/16 19:46 ; Admin Dose 10 MG; Start 02/14/16 at 09:00 Nitroglycerin (Nitroglycerin (Sl Tab) 0.4 Mg) 1 tab [id number] PRN SL CHEST PAIN ; Start 02/13/16 at 21:30 Ranolazine (Ranexa) 500 mg Q12 PO Last administered on 02/16/16 08:04; Admin Dose 500 MG; Start 02/14/16 at 09:00 Hydromorphone HCl (Dilaudid) 1 mg Q4H PRN IV PAIN Last administered on 12:03; Admin Dose 1 MG; Start 02/15/16 at 23:00 Magnesium Hydroxide (Milk Of Mag) 30 ml DAILY PRN PO CONSTIPATION Last administered on 02/16/16 12:08; Admin Dose 30 ML; Start 02/15/16 at 23:00 Zolpidem Tartrate (Ambien) 5 mg HS PRN PO SLEEP Last administered on 02/15/16 23:09; Admin Dose 5 MG; Start 02/15/16 at 23:00 EDUARDO ROME Feb 16, 2016 12:32
--- NOTE | 2016-02-16 14:54 | DS ---
Date/Time of Note Date/Time of Note DATE: 02/16/16 TIME: 14:53 Discharge Summary Admission/Discharge Info Admit Date/Time Feb 13, 2016 at 18:46 Discharge Date/Time 02/16/16 Final Diagnosis 1) chest pain 2) coronary artery disease Patient Condition: Fair Hx of Present Illness Patient with hypertension, hypercholesterolemia, coronary artery disease come in with chest pain. Patient was recently to have angiogram but was cancelled because of logistic difficulties. Patient sees Dr. Charlton for cardiology. Hospital Course IMPRESSION: 1. Chest pain, assess for acute coronary syndrome, somewhat atypical at this time.-negative troponin x 3. Now s/p lexiscan with no ischemia only scar. EF 49% 2. Abnormal electrocardiogram with isolated T-wave flattening in aVL. 3. Leg pain, rule out claudication, peripheral arterial disease.-Arterial GEORGE with no sig PAD and NL CHACORTA 4. Hypertension with borderline hypotension at this time on multiple antihypertensives and antianginal medications. 5. Headache. 6. Anxiety. 7. History of vasospastic angina. 8. History of percutaneous transluminal coronary angioplasty and stent placement with stents patent by catheterization in May 2015. Recc: -Tele -Continue norvasc/oral nitrates as toleratet for treatment of vasospastic angina -Will hold BB at this time given marginal BP -Continue asa/statin -resume plavix for stent patency and will d/c asa as he is on xarelto as well as outpatient for hypercoag disorder -Pain control Home Meds Active Scripts Isosorbide Dinitrate* (Isordil*) 10 Mg Tablet, 10 MG PO TID for 30 Days, TAB Prov:ALEJANDRA HOPKINS 01/12/16 Ranolazine* (Ranexa*) 500 Mg Tab.sr.12h, 500 MG PO Q12 for 30 Days, TAB Prov:ALEJANDRA HOPKINS 01/12/16 Carvedilol* (Carvedilol*) 3.125 Mg Tablet, 3.125 MG PO BID for 30 Days, TAB Prov:ALEJANDRA HOPKINS 01/12/16 Reported Medications Nitroglycerin* (Nitrostat*) 0.4 Mg Tab.subl, 0.4 MG SL Q5MIN Y for CHEST PAIN, BOTTLE 09/21/15 Atorvastatin* (Atorvastatin*) 80 Mg Tablet, 80 MG PO QHS, #30 TAB 08/20/15 Amlodipine Besylate* (Amlodipine Besylate*) 10 Mg Tablet, 10 MG PO DAILY, #30 TAB 08/20/15 Rivaroxaban* (Xarelto*) 10 Mg Tablet, 10 MG PO DAILY, TAB 08/20/15 JORGE CASTILLO Feb 16, 2016 14:54
[2016-02-17] MEDS ORDERED: CLOPIDOGREL 75 MG TAB PO SCH (09:00)
== END 2016-02-16 18:58 | disposition home or self-care (01) | DRG 313 ==
LOC: FTE 12:55 → TEL 18:46
PROVIDERS: ADMIT Internal Medicine; ATTEND Internal Medicine
DX: R07.89 Other chest pain (principal); I25.2 Old myocardial infarction; I10 Essential (primary) hypertension; I70.203 Unspecified atherosclerosis of native arteries of extremities, bilateral legs; R51 Headache; Z95.5 Presence of coronary angioplasty implant and graft; Z72.0 Tobacco use; F41.9 Anxiety disorder, unspecified
CPT/HCPCS: 70450; 71010; 78452; 80048; 80053; 80061; 82550; 82553; 84484; 85025; 85610; 85730; 93005; 93017; 93923; A9500; A9505; J1170; J1650; J2270; J2405; J2785

== ENCOUNTER 2016-03-14 21:57 | Emergency (ER) | payer BC ==
[~2016-03-14] VITALS: Ht 182.9 cm; Wt 91.5 kg
[2016-03-14 22:00] VITALS: Ht 182.9 cm; Wt 91.5 kg
--- NOTE | 2016-03-14 23:01 | ERA ---
ER Documentation Chief Complaint Date/Time DATE: 03/14/16 TIME: 23:00 Chief Complaint abdominal pain x 4 months HPI The patient is a 60-year-old male, presenting to the ER because of chronic abdominal pain. The pain however is worse for the last day, 09/19, no aggravating or relieving factor. He denies fever, chills, neck pain, chest pain , dyspnea, diarrhea, constipation, dysuria. He smokes half a pack a day, drinks socially Past medical history: Hypertension, dyslipidemia, COPD, history of CHF, anxiety Past surgical history: Cholecystectomy, stent PCI ROS All systems reviewed and are negative except as per history of present illness. Medications Home Meds Active Scripts Hydrocodone/Acetaminophen ([place] 5-325 Tablet) 1 Each Tablet, 1 TAB PO Q6H Y for PAIN, #7 TAB Prov:JOHN BARTHOLOMEW MD 03/15/16 Isosorbide Dinitrate* (Isordil*) 10 Mg Tablet, 10 MG PO TID for 30 Days, TAB Prov:ALEJANDRA HOPKINS 01/12/16 Ranolazine* (Ranexa*) 500 Mg Tab.sr.12h, 500 MG PO Q12 for 30 Days, TAB Prov:ALEJANDRA HOPKINS 01/12/16 Carvedilol* (Carvedilol*) 3.125 Mg Tablet, 3.125 MG PO BID for 30 Days, TAB Prov:ALEJANDRA HOPKINS 01/12/16 Reported Medications Nitroglycerin* (Nitrostat*) 0.4 Mg Tab.subl, 0.4 MG SL Q5MIN Y for CHEST PAIN, BOTTLE 09/21/15 Atorvastatin* (Atorvastatin*) 80 Mg Tablet, 80 MG PO QHS, #30 TAB 08/20/15 Amlodipine Besylate* (Amlodipine Besylate*) 10 Mg Tablet, 10 MG PO DAILY, #30 TAB 08/20/15 Rivaroxaban* (Xarelto*) 10 Mg Tablet, 10 MG PO DAILY, TAB 08/20/15 Allergies Allergies: Coded Allergies: No Known Allergy (Unverified , 03/14/16) PMhx/Soc History of Surgery: Yes (cholecystectomy) Anesthesia Reaction: No Hx Neurological Disorder: No Hx Respiratory Disorders: Yes (copd) Hx Cardiac Disorders: Yes (htn,chf,ptca with stents, mi) Hx Psychiatric Problems: No Hx Miscellaneous Medical Probl: No Hx Alcohol Use: Yes (occassionally) Hx Substance Use: No Hx Tobacco Use: Yes Physical Exam Vitals Vital Signs Date Time Temp Pulse Resp B/P Pulse Ox O2 Delivery O2 Flow Rate FiO2 03/15/16 00:20 98.6 78 20 125/62 98 Room Air 03/14/16 22:00 97.8 87 20 119/72 99 Physical Exam Const: No acute distress. Head: Atraumatic. Eyes: Normal Conjunctiva. ENT: Normal External Ears, Nose and Mouth. Neck: Full range of motion. No meningismus. Resp: Clear to auscultation bilaterally. Cardio: Regular rate and rhythm, no murmurs. Abd: Soft, non distended, normal bowel sounds, vague diffuse abdominal tenderness, no rigidity, rebound, CVA tenderness Skin: No petechiae or rashes. Back: No midline or flank tenderness. Ext: No cyanosis, or edema. Neur: Awake and alert. No focal deficit Psych: Normal Mood and Affect. Result Diagram: 03/14/16231403/14/165 Results 24 hrs Laboratory Tests Test 03/14/16 23:15 03/15/16 00:34 Alanine Aminotransferase (ALT/SGPT) 24IU/L Albumin 4.3g/dl Albumin/Globulin Ratio 1.38 Alkaline Phosphatase 66IU/L Anion Gap 19 Aspartate Amino Transf (AST/SGOT) 18IU/L Basophils # 0.010^3/ul Basophils % 0.5% Blood Morphology Comment Blood Urea Nitrogen 11mg/dl Calcium Level 9.1mg/dl Carbon Dioxide Level 27mmol/L Chloride Level 104mmol/L Creatinine 0.78mg/dl Direct Bilirubin 0.00mg/dl Eosinophils # 0.310^3/ul Eosinophils % 3.9% Globulin 3.10g/dl Glucose Level 80mg/dl Hematocrit 49.9% Hemoglobin 16.4g/dl Indirect Bilirubin 0.0mg/dl Lipase 25U/L Lymphocytes # 2.510^3/ul Lymphocytes % 28.6% Mean Corpuscular Hemoglobin 27.8pg Mean Corpuscular Hemoglobin Concent 32.9g/dl Mean Corpuscular Volume 84.4fl Mean Platelet Volume 8.7fl Monocytes # 0.610^3/ul Monocytes % 7.3% Neutrophils # 5.310^3/ul Neutrophils % 59.7% Nucleated Red Blood Cells # 0.010^3/ul Nucleated Red Blood Cells % 0.0/100WBC Platelet Count 92450^3/UL Potassium Level 3.7mmol/L Red Blood Count 5.9210^6/ul Red Cell Distribution Width 15.5% Sodium Level 146mmol/L Total Bilirubin 0.0mg/dl Total Protein 7.4g/dl White Blood Count 8.910^3/ul Bedside Urine Blood 2+ Bedside Urine Glucose (UA) Negative Bedside Urine Ketones (LAB) Negative Bedside Urine Leukocyte Esterase (L Negative Bedside Urine Nitrite (LAB) Negative Bedside Urine Protein (LAB) Negative Bedside Urine pH (LAB) 5.5 Current Medications Medications (Trade) Dose Ordered Sig/Bre Route PRN Reason Start Time Stop Time Status Last Admin Dose Admin Sodium Chloride (NS) 500 ml @ 500 mls/hr Q1H STAT IV 03/14/16 23:11 03/15/16 00:10 DC 03/14/16 23:31 Morphine Sulfate (morphine) 4 mg ONCE STAT IV 03/14/16 23:11 03/14/16 23:13 DC 03/14/16 23:31 Ondansetron HCl (Zofran Inj) 4 mg ONCE STAT IV 03/14/16 23:11 03/14/16 23:13 DC 03/14/16 23:32 Procedures/[place] [id number] Radiology Main Line: [phone] DIAGNOSTIC IMAGING REPORT Patient: JURGEN ROSEN : 1955 Age: 60 Sex: M MR #: [id number] DOS: 03/14/16 2311 Ordering MD: JOHN BARTHOLOMEW MD Location: E/R Room/Bed: PROCEDURE: CT abdomen and pelvis without contrast. CLINICAL INDICATION: Abdominal pain TECHNIQUE: CT scan of the abdomen and pelvis without contrast was performed. Sagittal and coronal reformatted images were obtained from the axial source images. CTDI = 18.59 mGy; DLP = 1219.80 mGy-cm COMPARISON: CT 08/27/2013 FINDINGS: Visualized lower thorax: The lung bases are clear. There is no evidence for pleural effusion. Right coronary artery calcification is present Liver, gallbladder, pancreas and spleen: The liver is normal and size, contour and attenuation. There is no evidence for a liver mass or ductal dilatation. Cholecystectomy clips are again seen. No common bile duct abnormality is demonstrated. The pancreas is unremarkable. The spleen is normal in size. Adrenal glands and genitourinary system: The adrenal glands are normal bilaterally. Incidental left renal cysts are again noted, not significantly changed the largest in the upper pole measures approximately 1.7 cm. Subtle hyperdense left renal cortex this may reflect internal hemorrhage or debris but are too small to characterize. The right kidney is unremarkable there is no evidence of renal calculus or hydronephrosis. The ureters are unremarkable. No urinary bladder abnormality is demonstrated. Mild prostate gland enlargement is similar to the previous study, the gland estimated at 4.8 x 4.6 x 4 cm. The scrotum shows no abnormality. Gastrointestinal system: The stomach is normal in caliber with no abnormality of significance. The small bowel is normal in caliber with no ileus, obstruction or wall thickening. The appendix and surrounding fat are within the limits of normal. The colon shows no evidence for wall thickening or acute abnormality. Stranding and scarring of the fat within the presacral space is stable compared to the prior examination. There is no evidence of perirectal or perianal abscess at this time. No acute colitis is present, chronic colitis is difficult to exclude as there is some fat deposition within the distal colon. Peritoneum, retroperitoneum, lymph nodes and vessels: The abdominal aorta is normal in caliber. There is moderate diffuse atherosclerotic calcification. The inferior vena cava is unremarkable. There is no evidence for adenopathy or mass. There is no ascites. Osseous structures and musculoskeletal findings: There is no fracture, lytic or blastic lesion. Mild multilevel thoracolumbar spondylosis is present No muscular abnormality or soft tissue pathology is present. RPTAT:HJJR IMPRESSION: 1. Equivocal findings for chronic distal colitis without evidence of acute intra-abdominal or intrapelvic pathology. 2. Chronic scarring in the presacral space and perirectal region is unchanged from the study of 08/27/2013. 3. Stable right coronary artery and aortic atherosclerotic calcification. 4. Incidental renal cysts with questionable internal proteinaceous material or hemorrhage on the left. 5. Mild unchanged prostatomegaly. 6. Prior cholecystectomy again noted. Physician Brijseh Date Time Electronically viewed and signed by Rudolph Corral Physician on 03/15/2016 00:23 JR/ CC: JOHN BARTHOLOMEW MD MEDICAL MAKING DECISION: The patient is a 60-year-old male, presenting with acute on chronic abdominal pain of unclear etiology. He was treated with morphine 4 mg IV for pain, Zofran 4 milligrams IV for nausea and 500 mL normal saline for clinical dehydration with good response. The differential diagnoses considered include but are not limited to cystitis, pancreatitis, hepatitis, gastritis, peptic ulcer disease, gastric ulcer, appendicitis, diverticulitis, cholangitis, choledocholithiasis, partial small bowel obstruction, renal colic, pyelonephritis, malignancy. Departure Diagnosis: Primary Impression: Abdominal pain Additional Impression: Hematuria Condition: Good Comments I discussed the findings with the patient. I advised the patient to follow-up with the primary physician in about 1-2 days, sooner if needed and return if any concern. He was discharged with JOHN Dougherty MD Mar 14, 2016 23:01
[2016-03-14] MEDS ORDERED: morphine 4 MG/ML VIAL IV STA (23:11)
[2016-03-14] MEDS ORDERED: ONDANSETRON 4 MG INJ IV STA (23:11)
[2016-03-14] MEDS ORDERED: SOD CHLORIDE 0.9% 500 ML IV STA (23:11)
[2016-03-14 23:48] LABS: ALBUMIN 4.3 g/dl (3.3-4.9)
[2016-03-14 23:49] LABS: POTASSIUM 3.7 mmol/L (3.5-5.1)
[2016-03-14 23:51] LABS: ALBUMIN/GLOBULIN RATIO 1.38; CREATININE 0.78 mg/dl (0.61-1.24); TOTAL PROTEIN 7.4 g/dl (6.1-8.1)
[2016-03-14 23:52] LABS: CALCIUM 9.1 mg/dl (8.4-10.2)
--- NOTE | 2016-03-15 00:23 | RADRPT ---
PROCEDURE: CT abdomen and pelvis without contrast. CLINICAL INDICATION: Abdominal pain TECHNIQUE: CT scan of the abdomen and pelvis without contrast was performed. Sagittal and coronal reformatted images were obtained from the axial source images. CTDI = 18.59 mGy; DLP = 1219.80 mGy- cm COMPARISON: CT 08/27/2013 FINDINGS: Visualized lower thorax: The lung bases are clear. There is no evidence for pleural effusion. Righ t coronary artery calcification is present Liver, gallbladder, pancreas and spleen: The liver is normal and size, contour and attenuation. Th ere is no evidence for a liver mass or ductal dilatation. Cholecystectomy clips are again seen. No common bile duct abnormality is demonstrated. The pancreas is unremarkable. The spleen is normal in size. Adrenal glands and genitourinary system: The adrenal glands are normal bilaterally. Incidental left renal cysts are again noted, not significantly changed the largest in the upper pole measures appro ximately 1.7 cm. Subtle hyperdense left renal cortex this may reflect internal hemorrhage or debris but are too small to characterize. The right kidney is unremarkable there is no evidence of renal calculus or hydronephrosis. The ureters are unremarkable. No urinary bladder abnormality is demons trated. Mild prostate gland enlargement is similar to the previous study, the gland estimated at 4. 8 x 4.6 x 4 cm. The scrotum shows no abnormality. Gastrointestinal system: The stomach is normal in caliber with no abnormality of significance. The small bowel is normal in caliber with no ileus, obstruction or wall thickening. The appendix and s urrounding fat are within the limits of normal. The colon shows no evidence for wall thickening or acute abnormality. Stranding and scarring of the fat within the presacral space is stable compared to the prior examination. There is no evidence of perirectal or perianal abscess at this time. No acute colitis is present, chronic colitis is difficult to exclude as there is some fat deposition wi thin the distal colon. Peritoneum, retroperitoneum, lymph nodes and vessels: The abdominal aorta is normal in caliber. The re is moderate diffuse atherosclerotic calcification. The inferior vena cava is unremarkable. Ther e is no evidence for adenopathy or mass. There is no ascites. Osseous structures and musculoskeletal findings: There is no fracture, lytic or blastic lesion. Mil d multilevel thoracolumbar spondylosis is present No muscular abnormality or soft tissue pathology i s present. RPTAT:HJJR IMPRESSION: 1. Equivocal findings for chronic distal colitis without evidence of acute intra-abdominal or intra pelvic pathology. 2. Chronic scarring in the presacral space and perirectal region is unchanged from the study of . 3. Stable right coronary artery and aortic atherosclerotic calcification. 4. Incidental renal cysts with questionable internal proteinaceous material or hemorrhage on the le ft. 5. Mild unchanged prostatomegaly. 6. Prior cholecystectomy again noted. Physician Brijesh Date Time Electronically viewed and signed by Rudolph Corral Physician on 03/15/2016 00:23 JR/
[2016-03-15 00:33] LABS: URINE BLOOD (Dip) POC 2+ (NEGATIVE)
[2016-03-15 00:54] LABS: BASOPHILS % 0.5 % (0.0-2.0); EOSINOPHILS # 0.3 10^3/ul (0.0-0.5); EOSINOPHILS % 3.9 % (0.0-7.0); HEMATOCRIT 49.9 % (42.0-52.0); HEMOGLOBIN 16.4 g/dl (14.0-18.0); LYMPHOCYTES # 2.5 10^3/ul (0.8-2.9); LYMPHOCYTES % 28.6 % (15.0-51.0); MEAN CORPUSCULAR HEMOGLOBIN 27.8 pg (29.0-33.0); MEAN CORPUSCULAR HGB CONC 32.9 g/dl (32.0-37.0); MEAN CORPUSCULAR VOLUME 84.4 fl (82.0-101.0); MEAN PLATELET VOLUME 8.7 fl (7.4-10.4); MONOCYTE # 0.6 10^3/ul (0.3-0.9); MONOCYTES % 7.3 % (0.0-11.0); NEUTROPHIL # 5.3 10^3/ul (1.6-7.5); NEUTROPHILS % 59.7 % (39.0-77.0); PLATELET COUNT 210 10^3/UL (140-440); RED BLOOD COUNT 5.92 10^6/ul (4.70-6.10); RED CELL DISTRIBUTION WIDTH 15.5 % (11.5-14.5); UNCORRECTED WBC 8.9 10^3/ul (4.8-10.8); WHITE BLOOD COUNT 8.9 10^3/ul (4.8-10.8)
[2016-03-15 00:59] LABS: CONDITION 1; LH ANALYZER COMMENTS 1
[2016-03-15] MEDS ORDERED: HYDR-906 PO (01:44)
[2016-03-15 02:07] VITALS: BP 115/75; PULSE 78; RESP 20; TEMP 98.4
== END 2016-03-15 02:29 | disposition home or self-care (01) ==
LOC: E/R 21:57
DX: R10.9 Unspecified abdominal pain (principal); R31.9 Hematuria, unspecified; I10 Essential (primary) hypertension; I50.9 Heart failure, unspecified; J44.9 Chronic obstructive pulmonary disease, unspecified; Z87.891 Personal history of nicotine dependence
CPT/HCPCS: 74176; 80053; 81003; 83690; 85025; J2270; J2405; J7040; 36415; 96374; 96375

== ENCOUNTER 2016-04-21 21:39 | Inpatient (IN) | END 2016-04-25 12:00 | disposition home or self-care (01) | DRG 287 | DX: I25.10 Atherosclerotic heart disease of native coronary artery without angina pectoris (principal); E87.0 Hyperosmolality and hypernatremia; D68.2 Hereditary deficiency of other clotting factors; I42.9 Cardiomyopathy, unspecified; T82.855A Stenosis of coronary artery stent, initial encounter; I10 Essential (primary) hypertension; F17.200 Nicotine dependence, unspecified, uncomplicated; Z95.5 Presence of coronary angioplasty implant and graft; F41.9 Anxiety disorder, unspecified; Z79.02 Long term (current) use of antithrombotics/antiplatelets ==

== ENCOUNTER 2016-07-08 12:37 | Emergency (ER) | payer OTHER ==
[~2016-07-08] VITALS: Ht 182.9 cm; Wt 90.0 kg
[~2016-07-08 12:37] MED LIST changes: +ADV25050 INH; +AMLO-145 PO; -AMLO-147 PO; -CARV3.1260 PO; +CLOP75TA28 PO; +HYDR-906 PO
[2016-07-08 12:41] VITALS: Ht 182.9 cm; Wt 90.0 kg
[2016-07-08] MEDS ORDERED: ONDANSETRON 4 MG INJ IV STA (12:57)
[2016-07-08] MEDS ORDERED: morphine 4 MG/ML VIAL IV STA (12:57)
[2016-07-08] MEDS ORDERED: SOD CHLORIDE 0.9% 1,000 ML IV STA (12:57)
[2016-07-08] MEDS ORDERED: LIDOCAINE/MYLANTA 40 ML BTL PO ONE (13:00)
--- NOTE | 2016-07-08 13:47 | RADRPT ---
PROCEDURE: CT Abdomen and Pelvis without contrast. CLINICAL INDICATION: Recent EGD. Severe upper abdominal pain. TECHNIQUE: CT scan of the abdomen and pelvis without contrast was performed. The patient was scann ed without intravenous contrast. Coronal and sagittal reformatted images were obtained from the axi al source images. Use of iterative reconstruction technique was employed. Images were reviewed on a high-resolution PACS workstation. images. The calculated radiation dose measures 1264.06 mGy centime ters. The CTDI measures 19.13 mGy. One or more of the following dose reduction techniques were used: - Automated exposure control. - Adjustment of the mA and/or kV according to patient size . - Use of iterative reconstruction technique. Images were reviewed on a high-resolution PACS workstation COMPARISON: None. FINDINGS: CT abdomen: The lung bases are remarkable for emphysematous changes. The heart size is normal, without pericard ial thickening or effusion. The patient is status post vascular stents. The liver is normal in size and density without focal mass or intrahepatic biliary dilatation. The spleen is normal in size and homogeneous in density. The stomach is partially collapsed, but is grossly unremarkable. The panc reas as visualized is mildly atrophic. The gallbladder is surgically absent. The biliary tree is o therwise unremarkable and there is no evidence for biliary dilatation. The adrenal glands are symme tric and normal. The left adrenal gland is mildly nodular. There is a 1.7 cm hypodensity at the lef t mid pole of the kidney, presumably a cyst and a smaller sub-centimeter density adjacent to it, too small to characterize. There is a less than 2 mm calculus at the left mid pole of the kidney. No evidence for right nephroureterolithiasis. No evidence for hydronephrosis in either kidney. The aorta is of normal caliber. Aortic vascular calcifications are present. There is no retroperit sanchez lymphadenopathy. The carmela hepatis region is clear. The bowel and mesentery, as visualized, are equally unremarkable. CT pelvis: The small bowel loops situated within the pelvis are unremarkable. The pelvic organs are normal. T he pelvic sidewalls and inguinal regions are clear. The sigmoid colon and rectum are is not thicken ed or dilated. A normal appendix is identified. No mass, lymphadenopathy, or free fluid is seen. No acute inflammation is seen. Bilateral fat containing inguinal hernias are identified. The bladd er is collapsed. The surrounding osseous structures are remarkable for degenerative spondylosis of the spine. No ost eolytic or osteoblastic lesion is detected. IMPRESSION: 1. No acute inflammatory process seen within the abdomen or pelvis on this noncontrast examination. 2. Status post cholecystectomy. 3. Mild fatty atrophy of the pancreas. 4. Bilateral renal hypodensities, incompletely characterized, but likely represent cysts. 5. Atherosclerotic vascular calcifications. RPTAT: PP .Regis Calixto MD, Date Time Electronically viewed and signed by .Regis Calixto MD, on 07/08/2016 13:47 .d/
[2016-07-08 14:19] LABS: ADD SCAN DIFF NO
[2016-07-08 14:23] LABS: BASOPHILS % 0.2 % (0.0-2.0); EOSINOPHILS # 0.1 10^3/ul (0.0-0.5); EOSINOPHILS % 0.9 % (0.0-7.0); HEMATOCRIT 48.8 % (42.0-52.0); HEMOGLOBIN 15.7 g/dl (14.0-18.0); LYMPHOCYTES # 1.8 10^3/ul (0.8-2.9); LYMPHOCYTES % 13.2 % (15.0-51.0); MEAN CORPUSCULAR HEMOGLOBIN 28.2 pg (29.0-33.0); MEAN CORPUSCULAR HGB CONC 32.2 g/dl (32.0-37.0); MEAN CORPUSCULAR VOLUME 87.8 fl (82.0-101.0); MEAN PLATELET VOLUME 9.6 fl (7.4-10.4); MONOCYTE # 0.9 10^3/ul (0.3-0.9); NEUTROPHIL # 10.4 10^3/ul (1.6-7.5); PLATELET COUNT 208 10^3/UL (140-415); RED BLOOD COUNT 5.56 10^6/ul (4.70-6.10); RED CELL DISTRIBUTION WIDTH 15.2 % (11.5-14.5); WHITE BLOOD COUNT 13.3 10^3/ul (4.8-10.8)
[2016-07-08 14:39] LABS: ALBUMIN 4.2 g/dl (3.3-4.9); POTASSIUM 3.9 mmol/L (3.5-5.1)
[2016-07-08 14:41] LABS: CREATININE 0.81 mg/dl (0.61-1.24)
[2016-07-08 14:42] LABS: ALBUMIN/GLOBULIN RATIO 1.4; BILIRUBIN,INDIRECT 0.3 mg/dl (0-1.1); BILIRUBIN,TOTAL 0.3 mg/dl (0.2-1.3); CALCIUM 9.3 mg/dl (8.4-10.2); TOTAL PROTEIN 7.2 g/dl (6.1-8.1)
[2016-07-08 14:45] VITALS: BP 109/76; PULSE 70; RESP 16; TEMP 97.9
[2016-07-08] MEDS ORDERED: RANI150T9 PO (14:58)
[2016-07-08] MEDS ORDERED: NAPR-688 PO (14:58)
[2016-07-08] MEDS ORDERED: METH500T PO (14:58)
--- NOTE | 2016-07-08 15:04 | ERD ---
ER Documentation Chief Complaint Date/Time DATE: 07/08/16 TIME: 15:02 Chief Complaint abdominal pain and bilateral shoulder pain x 2 weeks HPI This 60-year-old male presents with achy upper abdominal pain ever since he had an EGD a week ago in which they removed polyps as well as 2 weeks of back pain that goes up from his trapezius all the way down his back to his lower back. He has had no new trauma to his back. States that polyps were removed at [facility] and that they had the biopsy results there but he does not remember what they said. His doctor wanted to start him on H. pylori regimen but the pharmacist would not fill it because it interfered with his heart medications. He is Anderson been seen at [facility] for this pain and they performed a workup and did not find anything and prescribed him [place] which he still has at home. ROS All systems reviewed and are negative except as per history of present illness. Medications Home Meds Active Scripts Ranitidine Hcl* (Zantac*) 150 Mg Tablet, 150 MG PO BID Y for EPIGASTRIC PAIN, # 30 TAB Prov:KIESHA BOLAND DO 07/08/16 Naproxen* (Naproxen*) 500 Mg Tablet, 500 MG PO BID Y for PAIN, #10 TAB Prov:KIESHA BOLAND DO 07/08/16 Methocarbamol* (Robaxin*) 500 Mg Tab, 500 MG PO Q8, #14 TAB Prov:KIESHA BOLAND DO 07/08/16 Amlodipine Besylate* (Amlodipine Besylate*) 5 Mg Tablet, 5 MG PO DAILY for 30 Days, TAB 3 Refills Prov:FELICIANO HERNANDEZ 04/25/16 Clopidogrel Bisulfate (Clopidogrel) 75 Mg Tablet, 75 MG PO DAILY for 30 Days, TAB 3 Refills Prov:FELICIANO HERNANDEZ 04/25/16 Ranolazine* (Ranexa*) 500 Mg Tab.sr.12h, 1000 MG PO Q12 for 30 Days, TAB 3 Refills Prov:FELICIANO HERNANDEZ 04/25/16 Salmeterol Xinaf/Fluticasone* (Advair*) 250-50 Diskus Inhaler, 1 INH INH BID for 30 Days, 3 Refills Prov:FELICIANO HERNANDEZ 04/25/16 Hydrocodone/Acetaminophen ([place] 5-325 Tablet) 1 Each Tablet, 1 TAB PO Q6H Y for PAIN, #7 TAB Prov:JOHN BARTHOLOMEW MD 03/15/16 Isosorbide Dinitrate* (Isordil*) 10 Mg Tablet, 10 MG PO TID for 30 Days, TAB Prov:ALEJANDRA HOPKINS 01/12/16 Reported Medications Nitroglycerin* (Nitrostat*) 0.4 Mg Tab.subl, 0.4 MG SL Q5MIN Y for CHEST PAIN, BOTTLE 09/21/15 Atorvastatin* (Atorvastatin*) 80 Mg Tablet, 80 MG PO QHS, #30 TAB 08/20/15 Rivaroxaban* (Xarelto*) 10 Mg Tablet, 10 MG PO DAILY, TAB 08/20/15 Allergies Allergies: Coded Allergies: No Known Allergy (Unverified , 04/22/16) PMhx/Soc History of Surgery: Yes (6 correctal abcess surgeries, galbladder removal, angiograms, 7 stents) Anesthesia Reaction: No Hx Neurological Disorder: No Hx Respiratory Disorders: Yes (COPD) Hx Cardiac Disorders: Yes (htn, x 7 stents, cholesterol) Hx Psychiatric Problems: No Hx Miscellaneous Medical Probl: No Hx Alcohol Use: Yes (occasionally) Hx Substance Use: No Hx Tobacco Use: Yes (10 cigarettes daily) Smoking Status: Current every day smoker Physical Exam Vitals Vital Signs Date Time Temp Pulse Resp B/P Pulse Ox O2 Delivery O2 Flow Rate FiO2 07/08/16 14:45 97.9 70 16 109/76 99 Room Air 07/08/16 12:41 97.6 93 18 116/78 99 Physical Exam Const: [] No distress Head: Atraumatic Eyes: Normal Conjunctiva ENT: Normal External Ears, Nose and Mouth. Neck: Full range of motion..~ No meningismus. Resp: Clear to auscultation bilaterally Cardio: Regular rate and rhythm, no murmurs Abd: Soft, mild epigastric abdominal pain without guarding or rebound non distended. Normal bowel sounds Skin: No petechiae or rashes Back: No midline or flank tenderness, bilateral paraspinal muscle spasm of the lumbar spine as well as the upper trapezius. Mild tenderness along paraspinal muscles with no midline tenderness. Ext: No cyanosis, or edema Neur: Awake and alert Psych: Normal Mood and Affect Result Diagram: 07/08/16 1358 07/08/16 1358 Results 24 hrs Laboratory Tests Test 07/08/16 13:58 White Blood Count 13.310^3/ul Red Blood Count 5.5610^6/ul Hemoglobin 15.7g/dl Hematocrit 48.8% Mean Corpuscular Volume 87.8fl Mean Corpuscular Hemoglobin 28.2pg Mean Corpuscular Hemoglobin Concent 32.2g/dl Red Cell Distribution Width 15.2% Platelet Count 19124^3/UL Mean Platelet Volume 9.6fl Neutrophils % 78.0% Lymphocytes % 13.2% Monocytes % 7.0% Eosinophils % 0.9% Basophils % 0.2% Nucleated Red Blood Cells % 0.0/100WBC Neutrophils # 10.410^3/ul Lymphocytes # 1.810^3/ul Monocytes # 0.910^3/ul Eosinophils # 0.110^3/ul Basophils # 0.010^3/ul Nucleated Red Blood Cells # 0.010^3/ul Sodium Level 143mmol/L Potassium Level 3.9mmol/L Chloride Level 108mmol/L Carbon Dioxide Level 30mmol/L Anion Gap 9 Blood Urea Nitrogen 7mg/dl Creatinine 0.81mg/dl Glucose Level 83mg/dl Calcium Level 9.3mg/dl Total Bilirubin 0.3mg/dl Direct Bilirubin 0.00mg/dl Indirect Bilirubin 0.3mg/dl Aspartate Amino Transf (AST/SGOT) 15IU/L Alanine Aminotransferase (ALT/SGPT) 26IU/L Alkaline Phosphatase 52IU/L Total Protein 7.2g/dl Albumin 4.2g/dl Globulin 3.00g/dl Albumin/Globulin Ratio 1.40 Lipase 25U/L Current Medications Medications (Trade) Dose Ordered Sig/Bre Route PRN Reason Start Time Stop Time Status Last Admin Dose Admin Sodium Chloride (NS) 1,000 ml @ 1,000 mls/hr Q1H STAT IV 07/08/16 12:57 07/08/16 13:56 DC 07/08/16 14:00 Morphine Sulfate (morphine) 4 mg ONCE STAT IV 07/08/16 12:57 07/08/16 12:59 DC 07/08/16 14:00 Ondansetron HCl (Zofran Inj) 4 mg ONCE STAT IV 07/08/16 12:57 07/08/16 12:59 DC 07/08/16 14:00 Miscellaneous Medication (Gi Cocktail (2)) 40 ml ONCE ONCE PO 07/08/16 13:00 07/08/16 13:01 DC 07/08/16 14:00 Procedures/MDM Post EGD with biopsy upper abdominal pain. This is likely secondary to irritation from EGD and performing a biopsy. Is no evidence of free air or abdominal wall rupture. After GI cocktail patient had no abdominal pain. His back pain which appears to be a back muscle spasm with soreness of the bilateral paraspinal muscles worse in his lower back but extending from his upper trapezius down the back was improved with 4 mg of morphine. He does have muscle spasm there. I am going to discharge him the Robaxin and a few doses of naproxen in addition to the [place] that he already has. He has mild leukocytosis with no symptoms of infection. Is going to follow-up with his doctor tomorrow to see if there is an alternative regimen he can take for H. pylori that will not interfere with his heart medication. Is otherwise healthy and has stable vital signs. CT abdomen pelvis interpretation: I see no acute process, no obstruction, no free air, no abnormal fat stranding, no fractures. Departure Diagnosis: Primary Impression: Muscle spasm of back Additional Impression: Abdominal pain Condition: Stable Patient Instructions: Abdominal Pain, Back Spasm, No Trauma Additional Instructions: Call your primary care doctor TOMORROW for an appointment during the next 1-2 days.See the doctor sooner or return here if your condition worsens before your appointment time. KIESHA BOLAND DO July 08, 2016 15:04
== END 2016-07-08 15:16 | disposition home or self-care (01) ==
LOC: E/R 12:37
DX: M62.830 Muscle spasm of back (principal); R10.13 Epigastric pain; I10 Essential (primary) hypertension; J44.9 Chronic obstructive pulmonary disease, unspecified; F17.210 Nicotine dependence, cigarettes, uncomplicated; Z79.01 Long term (current) use of anticoagulants; Z98.61 Coronary angioplasty status
CPT/HCPCS: 36415; 74176; 80053; 83690; 85025; 96361; 96374; 96375; J2270; J2405; J7030; Z7502; Z7610

== ENCOUNTER 2016-11-06 11:48 | Emergency (ER) | payer OTHER ==
[~2016-11-06] VITALS: Ht 175.3 cm; Wt 91.5 kg
[~2016-11-06 11:48] MED LIST changes: +METH500T PO; +NAPR-688 PO; +RANI150T9 PO
[2016-11-06 11:55] VITALS: Ht 175.3 cm; Wt 91.5 kg
--- NOTE | 2016-11-06 16:35 | RADRPT ---
PROCEDURE: Chest x-ray CLINICAL INDICATION: Chest pain TECHNIQUE: Chest single view COMPARISON: 04/22/2016 FINDINGS: The heart is normal in size. The pulmonary vessels are normal in caliber. The lungs are clear. Th e costophrenic angles are sharp. The visualized bony thorax is unremarkable. IMPRESSION: No acute cardiopulmonary disease. RPTAT: HH .Pedro Luis Gilbert MD, Date Time Electronically viewed and signed by .Pedro Luis Gilbert MD, MD on 11/06/2016 16:35 .W/
--- NOTE | 2016-11-06 16:38 | ERD ---
ER Documentation Chief Complaint Date/Time DATE: 11/06/16 TIME: 16:37 Chief Complaint chest pain x 1 hour radiating to shoulder HPI Patient is a 61-year-old male with coronary disease and hypertension who presents with chest pain. He is speaking in full sentences. He has a history of stents. He said that his chest pain started 1 hour ago. He said the pain is midsternal which radiates to the bilateral shoulders and is sharp in nature. He tried nitro and Tylenol. Upon review of old medical records he has multiple visits to the ER for similar complaints. He is well-known to myself into our staff for similar presentations with chest pain. 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 ROS All systems reviewed and are negative except as per history of present illness. Medications Home Meds Active Scripts Ranitidine Hcl* (Zantac*) 150 Mg Tablet, 150 MG PO BID Y for EPIGASTRIC PAIN, # 30 TAB Prov:KIESHA BOLAND DO 07/08/16 Naproxen* (Naproxen*) 500 Mg Tablet, 500 MG PO BID Y for PAIN, #10 TAB Prov:KIESHA BOLAND DO 07/08/16 Methocarbamol* (Robaxin*) 500 Mg Tab, 500 MG PO Q8, #14 TAB Prov:KIESHA BOLAND DO 07/08/16 Amlodipine Besylate* (Amlodipine Besylate*) 5 Mg Tablet, 5 MG PO DAILY for 30 Days, TAB 3 Refills Prov:FELICIANO HERNANDEZ 04/25/16 Clopidogrel Bisulfate (Clopidogrel) 75 Mg Tablet, 75 MG PO DAILY for 30 Days, TAB 3 Refills Prov:FELICIANO HERNANDEZ 04/25/16 Ranolazine* (Ranexa*) 500 Mg Tab.sr.12h, 1000 MG PO Q12 for 30 Days, TAB 3 Refills Prov:FELICIANO HERNANDEZ 04/25/16 Salmeterol Xinaf/Fluticasone* (Advair*) 250-50 Diskus Inhaler, 1 INH INH BID for 30 Days, 3 Refills Prov:FELICIANO HERNANDEZ 04/25/16 Hydrocodone/Acetaminophen ([place] 5-325 Tablet) 1 Each Tablet, 1 TAB PO Q6H Y for PAIN, #7 TAB Prov:JOHN BARTHOLOMEW MD 03/15/16 Isosorbide Dinitrate* (Isordil*) 10 Mg Tablet, 10 MG PO TID for 30 Days, TAB Prov:ALEJANDRA HOPKINS 01/12/16 Reported Medications Nitroglycerin* (Nitrostat*) 0.4 Mg Tab.subl, 0.4 MG SL Q5MIN Y for CHEST PAIN, BOTTLE 09/21/15 Atorvastatin* (Atorvastatin*) 80 Mg Tablet, 80 MG PO QHS, #30 TAB 08/20/15 Rivaroxaban* (Xarelto*) 10 Mg Tablet, 10 MG PO DAILY, TAB 08/20/15 Allergies Allergies: Coded Allergies: No Known Allergy (Unverified , 04/22/16) PMhx/Soc History of Surgery: Yes (6 correctal abcess surgeries, galbladder removal, angiograms, 7 stents) Anesthesia Reaction: No Hx Neurological Disorder: No Hx Respiratory Disorders: Yes (COPD) Hx Cardiac Disorders: Yes (htn, x 7 stents, cholesterol) Hx Psychiatric Problems: No Hx Miscellaneous Medical Probl: No Hx Alcohol Use: Yes (occasionally) Hx Substance Use: No Hx Tobacco Use: Yes (10 cigarettes daily) FmHx Family History: coronary disease Physical Exam Vitals Vital Signs Date Time Temp Pulse Resp B/P Pulse Ox O2 Delivery O2 Flow Rate FiO2 11/06/16 11:55 98.0 95 18 128/81 96 Physical Exam Const: No acute distress Head: Atraumatic Eyes: Normal Conjunctiva ENT: Normal External Ears, Nose and Mouth. Neck: Full range of motion..~ No meningismus. Resp: Clear to auscultation bilaterally Cardio: Regular rate and rhythm, no murmurs Abd: Soft, non tender, non distended. Normal bowel sounds Skin: No petechiae or rashes Back: No midline or flank tenderness Ext: No cyanosis, or edema Neur: Awake and alert Psych: Normal Mood and Affect Results 24 hrs Current Medications Medications (Trade) Dose Ordered Sig/Bre Route PRN Reason Start Time Stop Time Status Last Admin Dose Admin Ibuprofen (Motrin) 800 mg ONCE ONCE PO 11/06/16 16:00 11/06/16 16:01 DC Procedures/MDM EKG read by me: Rate/Rhythm: Regular rate and rhythm at a rate of 90 Intervals: Normal Impression: No evidence of ischemia or arrhythmia Chest X-ray 1V Interpreted by me: Soft Tissue: No acute abnormalities Bones: No acute abnormalities Mediastinum/Cardiac Silhouette/Lungs: No acute abnormalities Patient is a 61-year-old male who presents with chest pain. EKG shows no signs of ischemia and chest x-ray shows no pneumonia or pneumothorax. At this point I doubt acute coronary syndrome, pneumonia, pneumothorax, pulmonary embolism, or aortic dissection. However I do believe the patient should have close follow -up with Dr. Bryson within 24-48 hours for reevaluation. He can return sooner for any worsening symptoms. He was just admitted a few months prior for chest pain and I do not believe he requires readmission at this time. He could return for any worsening symptoms. Departure Diagnosis: Primary Impression: Chest pain Chest pain type: unspecified Qualified Code: R07.9 - Chest pain, unspecified type Condition: Fair Patient Instructions: Chest Pain, Uncertain Cause Referrals: JOSE J CHAPA (PCP) REBECCA BRYSON MD Additional Instructions: Call your primary care doctor TOMORROW for an appointment during the next 1-2 days.See the doctor sooner or return here if your condition worsens before your appointment time. CJ BUSH MD Nov 06, 2016 16:38
[2016-11-06] MEDS: IBUPROFEN 800 MG TAB PO ONE ×2 (16:47→16:48)
== END 2016-11-06 18:00 | disposition home or self-care (01) ==
LOC: E/R 11:48
DX: R07.9 Chest pain, unspecified (principal); I10 Essential (primary) hypertension; I25.10 Atherosclerotic heart disease of native coronary artery without angina pectoris; J44.9 Chronic obstructive pulmonary disease, unspecified; F17.210 Nicotine dependence, cigarettes, uncomplicated; Z79.01 Long term (current) use of anticoagulants; Z95.5 Presence of coronary angioplasty implant and graft
CPT/HCPCS: 71010; 93005; Z7502; Z7610

== ENCOUNTER 2016-11-19 04:43 | Observation (INO) | payer OTHER ==
[~2016-11-19] VITALS: Ht 175.3 cm; Wt 90.7 kg
[2016-11-19 08:46] VITALS: Ht 175.3 cm; Wt 90.7 kg
[2016-11-19 09:11] VITALS: PULSE 70
[2016-11-19] MEDS ORDERED: HYDROCODONE/APAP (5/325) TAB PO PRN (10:00)
[2016-11-19] MEDS ORDERED: ACETAMINOPHEN 325 MG TAB PO PRN (10:00)
[2016-11-19] MEDS ORDERED: ONDANSETRON 4 MG INJ IV PRN (10:00)
[2016-11-19] MEDS ORDERED: ASPIRIN 81 MG TAB PO SCH (10:00)
[2016-11-19] MEDS ORDERED: NACL 0.9% 3 ML SYG IV SCH (10:00)
[2016-11-19] MEDS ORDERED: BISACODYL 10 MG SUPP PR PRN (10:00)
[2016-11-19] MEDS ORDERED: DOCUSATE SODIUM 100 MG CAP PO PRN (10:00)
[2016-11-19 10:32] LABS: BASOPHILS % 0.3 % (0.0-2.0); EOSINOPHILS # 0.2 10^3/ul (0.0-0.5); HEMATOCRIT 46.5 % (42.0-52.0); HEMOGLOBIN 14.6 g/dl (14.0-18.0); LYMPHOCYTES # 1.5 10^3/ul (0.8-2.9); LYMPHOCYTES % 23.1 % (15.0-51.0); MEAN CORPUSCULAR HEMOGLOBIN 27.2 pg (29.0-33.0); MEAN CORPUSCULAR HGB CONC 31.4 g/dl (32.0-37.0); MEAN CORPUSCULAR VOLUME 86.8 fl (82.0-101.0); MEAN PLATELET VOLUME 9.8 fl (7.4-10.4); MONOCYTE # 0.6 10^3/ul (0.3-0.9); MONOCYTES % 8.6 % (0.0-11.0); NEUTROPHIL # 4.2 10^3/ul (1.6-7.5); NEUTROPHILS % 64.8 % (39.0-77.0); PLATELET COUNT 167 10^3/UL (140-415); RED BLOOD COUNT 5.36 10^6/ul (4.70-6.10); RED CELL DISTRIBUTION WIDTH 15.7 % (11.5-14.5); WHITE BLOOD COUNT 6.4 10^3/ul (4.8-10.8)
[2016-11-19] MEDS: NITROGLYCERIN (SL) 0.4 MG TAB SL PRN ×3 (10:32→12:09)
[2016-11-19 10:54] LABS: ALBUMIN 3.3 g/dl (3.3-4.9); ALBUMIN/GLOBULIN RATIO 1.13; BILIRUBIN,INDIRECT 0.4 mg/dl (0-1.1); BILIRUBIN,TOTAL 0.4 mg/dl (0.2-1.3); CALCIUM 8.7 mg/dl (8.4-10.2); CREATININE 0.95 mg/dl (0.61-1.24); POTASSIUM 4.1 mmol/L (3.5-5.1); TOTAL PROTEIN 6.2 g/dl (6.1-8.1)
[2016-11-19 10:56] LABS: CREATINE KINASE 42 IU/L (23-200); MAGNESIUM 1.7 mg/dl (1.7-2.5)
[2016-11-19 11:10] LABS: CK-MB 0.91 ng/ml (0.0-2.4); TROPONIN-I < 0.012 ng/ml (0.00-0.12)
[2016-11-19] MEDS: RANOLAZINE (SR) 500 MG TAB PO SCH ×2 (11:34→21:00)
[2016-11-19] MEDS: SALMETEROL/FLUTICASONE 250/50 INHA INH SCH ×2 (11:34→20:39)
[2016-11-19 12:17] VITALS: BP 102/58; RESP 20
[2016-11-19] MEDS: ISOSORBIDE DINITRATE 10 MG TAB PO SCH ×2 (13:00→20:40)
[2016-11-19] MEDS: morphine 2 MG INJ IV PRN ×3 (13:05→22:38)
--- NOTE | 2016-11-19 13:16 | CONS ---
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 He has a hx of Factor V Leyden Def on xarelto in the past, TIA, COPD and presented with atypical [facility] wtih nromal trops and no acute ischemia byekg. His pin continues to be atypical and lasting hours at a time with no true exertional symtpoms, appear comfrotable an o ekg changes Past Surgical History Past Surgical Hx: noncontributory Social History Smoking Status: Current every day smoker Exam/Review of Systems Vital Signs Vitals Vital Signs Date Time Temp Pulse Resp B/P Pulse Ox O2 Delivery O2 Flow Rate FiO2 11/19/16 12:17 97.6 71 20 102/58 91 11/19/16 09:04 Nasal Cannula 2.0 Results Result Diagram: 11/19/16 1015 11/19/16 1015 Results 24 hrs Laboratory Tests Test 11/19/16 10:15 White Blood Count 6.4 # Red Blood Count 5.36 Hemoglobin 14.6 Hematocrit 46.5 Mean Corpuscular Volume 86.8 Mean Corpuscular Hemoglobin 27.2 L Mean Corpuscular Hemoglobin Concent 31.4 L Red Cell Distribution Width 15.7 H Platelet Count 167 Mean Platelet Volume 9.8 Neutrophils % 64.8 Lymphocytes % 23.1 Monocytes % 8.6 Eosinophils % 3.0 Basophils % 0.3 Nucleated Red Blood Cells % 0.0 Neutrophils # 4.2 Lymphocytes # 1.5 Monocytes # 0.6 Eosinophils # 0.2 Basophils # 0.0 Nucleated Red Blood Cells # 0.0 Sodium Level 141 Potassium Level 4.1 Chloride Level 110 Carbon Dioxide Level 27 Anion Gap 8 Blood Urea Nitrogen 13 Creatinine 0.95 Glucose Level 122 Calcium Level 8.7 Magnesium Level 1.7 Total Bilirubin 0.4 Direct Bilirubin 0.00 Indirect Bilirubin 0.4 Aspartate Amino Transf (AST/SGOT) 234 H Alanine Aminotransferase (ALT/SGPT) 188 H Alkaline Phosphatase 71 Creatine Kinase 42 Creatine Kinase Index 2.2 Creatinine Kinase MB (Mass) 0.91 Troponin I < 0.012 Total Protein 6.2 Albumin 3.3 Globulin 2.90 Albumin/Globulin Ratio 1.13 Triglycerides Level 148 Cholesterol Level 131 LDL Cholesterol, Calculated 69 HDL Cholesterol 32 Cholesterol/HDL Ratio 4.0 Amylase Level 172 H Lipase 1081 H Medications Medications Current Medications Nitroglycerin (Nitroglycerin (Sl Tab) 0.4 Mg) 1 tab Q5M PRN SL ANGINA Last administered on 11/19/16 12:09; Admin Dose 1 TAB; Start 11/19/16 at 10:00 Morphine Sulfate (morphine) 2 mg Q4H PRN IV PAIN LEVEL 7-10; Start 11/19/16 at 10:00 Ondansetron HCl (Zofran Inj) 4 mg Q6H PRN IV NAUSEA AND/OR VOMITING; Start 11/26 at 10:00 Aspirin (Aspirin) 81 mg DAILY PO Last administered on 11/19/16 10:32; Admin Dose 81 MG; Start 11/19/16 at 10:00 Acetaminophen (Tylenol Tab) 650 mg Q6H PRN PO PAIN LEVEL 1-3 OR FEVER; Start 11/19/16 at 10:00 Acetaminophen/ Hydrocodone Bitart (Alcova (5/325)) 1 tab Q6H PRN PO PAIN LEVEL 4 -6; Start 11/19/16 at 10:00 Acetaminophen/ Hydrocodone Bitart (Alcova (5/325)) 2 tab Q6H PRN PO PAIN LEVEL 7 -10; Start 11/19/16 at 10:00 Docusate Sodium (Colace) 100 mg Q12H PRN PO CONSTIPATION; Start 11/19/16 at 10 :00 Magnesium Hydroxide (Milk Of Mag) 30 ml DAILY PRN PO CONSTIPATION; Start 11/19 at 10:00 Bisacodyl (Dulcolax Supp) 10 mg DAILY PRN MD CONSTIPATION; Start 11/19/16 at 10:00 Famotidine (Pepcid) 20 mg Q12 PO ; Start 11/19/16 at 21:00 Amlodipine Besylate (Norvasc) 5 mg DAILY PO ; Start 11/20/16 at 09:00 Atorvastatin Calcium (Lipitor) 80 mg QHS PO ; Start 11/19/16 at 21:00 Clopidogrel Bisulfate (plaVIX) 75 mg DAILY PO ; Start 11/20/16 at 09:00 Isosorbide Dinitrate (Isordil) 10 mg TID PO ; Start 11/19/16 at 13:00 Methocarbamol (Robaxin) 500 mg Q8 PO ; Start 11/19/16 at 14:00 Ranolazine (Ranexa) 1,000 mg Q12 PO Last administered on 11/19/16 11:34; Admin Dose 1,000 MG; Start 11/19/16 at 11:00 Salmeterol Xinafoate/ Fluticasone (Advair 250/50 Diskus) 1 inh BID INH Last administered on 11/19/16 11:34; Admin Dose 1 INH; Start 11/19/16 at 11:00 Lorazepam (Ativan) 1 mg Q6H PRN IV ANXIETY; Start 11/19/16 at 13:30; Status SANTYV DANNA RODRIGEZ MD Nov 19, 2016 13:16
[2016-11-19] MEDS ORDERED: LORAZEPAM 2 MG INJ IV PRN (13:30)
[2016-11-19] MEDS: METHOCARBAMOL 500 MG TAB PO SCH ×2 (14:00→22:00)
[2016-11-19] MEDS ORDERED: MAGNESIUM SULFATE 3 GM in SOD CHLORIDE 0.9% 100 ML IVPB ONE (15:00)
--- NOTE | 2016-11-19 15:19 | HP ---
Date/Time of Note Date/Time of Note DATE: 11/19/16 TIME: 14:36 Assessment/Plan VTE Prophylaxis VTE Prophylaxis Intervention: other (Xarelto) Lines/Catheters IV Catheter Type (from Nrs): Saline Lock Assessment/Plan Assessment/Plan 62-year-old male with: 1. Chest pain, pressure, seems to be epigastric substernal radiating to the back and the shoulders, lipase elevated approx 1000, cardiac enzymes negative so far, EKG unremarkable, 2D echocardiogram done, cardiology evaluation ongoing but patient does not need any additional cardiac workup given current findings and atypical nature of chest pain per Dr. Aquino Continue all cardiac medications, patient reports that he is on Plavix, Lipitor , Ranexa and Imdur along with Norvasc for blood pressure 2. Elevated lipase, possible pancreatitis, repeat pancreatic enzymes in a.m., n.p.o. except for meds, IV fluids, MRCP pending. Depending on results further action to be taken. Patient denies regular or heavy alcohol use. LFTs abnormal therefore statins are being held currently. Will check fasting lipid panel 3. Reported gastritis and possibly H pylori infection based on EGD a few months ago this is per patient report, he claims that he was not able to be treated with antibiotics due to interaction with his cardiac medications. He has been on Prilosec on and off. Will get records from [facility]. 4. Hypertension: Continue home medications 5. Hyperlipidemia: Holding statin therapy due to abnormal AST/ALT 6. Tobacco use, possible COPD: Patient reports he has not smoked for the past 2 months, he is advised to quit. Continue Advair, Spiriva added, albuterol as needed. 7. Factor V Leyden mutation/deficiency: Continue Xarelto Prophylaxis: Patient already on Xarelto, Protonix for GI prophylaxis and reported gastritis Disposition: N.p.o. except for meds, IV fluids, MRCP, repeat pancreatic enzymes in a.m., COPD treatment, continue outpatient cardiac medications. HPI/ROS Admit Date/Time Admit Date/Time Nov 19, 2016 at 08:12 Hx of Present Illness Chief complaint: Chest pain History of presenting illness: 61-year-old male with known history of coronary artery disease status post multiple stents placed over the past few years, 8 stents according to patient, hypertension, hyperlipidemia, tobacco use as of 2 months ago , 1/2 pack a day, apparently also diagnosed with gastritis and possible H pylori few months ago when he had an EGD at [facility], was seen in the emergency department here at [facility] 10 days ago with episode of atypical chest pain, went to [facility] last night with ongoing chest pressure radiating to his back and his neck and worsened after exertion over the past 24 hours. Patient was evaluated and transferred to [facility] for continuity of care/cardiology evaluation. He is a patient of Dr. Aquino, he has seen him here this morning, as part of his workup I did order pancreatic enzymes along with LFTs as his pain has been ongoing and seems to be atypical from cardiology standpoint, his lipase came back approximately 1000, patient still complaining mainly of pressure and shortness of breath especially after exertion. This is a substernal chest pressure that has radiated to his back his neck and his shoulders from what he is describing. He reports he had some similar symptoms when he went to [facility] approximately 3-4 months ago and at that time again it was thought to be atypical and he had an EGD done. We will obtain results from [facility], in the meantime based on the findings of possible pancreatitis, an MRCP is ordered today, patient is status post cholecystectomy. He is maintained on his outpatient cardiac medication, repeat cardiac enzymes is negative. Will check another set of CE. Patient is n.p.o., IV fluids will be started. Based on MRCP results further decision-making will be done. Patient denies any headache, nausea, vomiting, genitourinary or gastrointestinal complaints. He reports that he quit smoking 2 months ago but has been smoking at least half a pack a day until then and prior to that up to 2 packs a day. ROS Constitutional: no complaints Eyes: no complaints ENT: no complaints Respiratory: shortness of breath (with exertion) Cardiovascular: chest pain (pressure ) Gastrointestinal: no complaints Genitourinary: no complaints Neurologic: no complaints Psychological: no complaints PMH/Family/Social Past Medical History Coronary artery disease status post multiple angiograms and stenting Factor V Leyden mutation, hypercoagulable state, on Xarelto Hypertension Hyperlipidemia Tobacco use Gastritis with possible H pylori Past Surgical History Status post cholecystectomy remotely Status post left vascular procedure to declot left upper extremity artery Status post multiple angiograms Status post rectal abscess incision and drainage x 6 Family History Significant Family History: no pertinent family hx (2 pack a day for years until recently half a pack a day now, reports he stopped smoking 2 months ago) Social History Smoking Status: Current every day smoker Exam/Review of Systems Vital Signs Vitals Vital Signs Date Time Temp Pulse Resp B/P Pulse Ox O2 Delivery O2 Flow Rate FiO2 11/19/16 12: 97.6 71 20 102/58 91 11/19/16 09:04 Nasal Cannula 2.0 Exam Constitutional: alert, oriented, well developed Respiratory: clear to auscultation, normal air movement, other (Slightly prolonged expiratory phase and occasional scattered wheezes ) Cardiovascular: nl pulses, regular rate and rhythm Gastrointestinal: non-tender, soft Musculoskeletal: nl extremities to inspection, nl gait and stance 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, nl mental status, nl speech, nl strength Labs Result Diagram: 11/19/16 1015 11/19/16 1015 Medications Medications Current Medications Nitroglycerin (Nitroglycerin (Sl Tab) 0.4 Mg) 1 tab Q5M PRN SL ANGINA Last administered on 11/19/16 12:09; Admin Dose 1 TAB; Start 11/19/16 at 10:00 Morphine Sulfate (morphine) 2 mg Q4H PRN IV PAIN LEVEL 7-10 Last administered on 11/19/16 13:05; Admin Dose 2 MG; Start 11/19/16 at 10:00 Ondansetron HCl (Zofran Inj) 4 mg Q6H PRN IV NAUSEA AND/OR VOMITING; Start 11/26 at 10:00 Aspirin (Aspirin) 81 mg DAILY PO Last administered on 11/19/16 10:32; Admin Dose 81 MG; Start 11/19/16 at 10:00 Acetaminophen (Tylenol Tab) 650 mg Q6H PRN PO PAIN LEVEL 1-3 OR FEVER; Start 11/19/16 at 10:00 Acetaminophen/ Hydrocodone Bitart ([place] (5/325)) 1 tab Q6H PRN PO PAIN LEVEL 4 -6; Start 11/19/16 at 10:00 Acetaminophen/ Hydrocodone Bitart ([place] (5/325)) 2 tab Q6H PRN PO PAIN LEVEL 7 -10; Start 11/19/16 at 10:00 Docusate Sodium (Colace) 100 mg Q12H PRN PO CONSTIPATION; Start 11/19/16 at 10 :00 Magnesium Hydroxide (Milk Of Mag) 30 ml DAILY PRN PO CONSTIPATION; Start 11/19 at 10:00 Bisacodyl (Dulcolax Supp) 10 mg DAILY PRN [place] CONSTIPATION; Start 11/19/16 at 10:00 Famotidine (Pepcid) 20 mg Q12 PO ; Start 11/19/16 at 21:00 Amlodipine Besylate (Norvasc) 5 mg DAILY PO ; Start 11/20/16 at 09:00 Clopidogrel Bisulfate (plaVIX) 75 mg DAILY PO ; Start 11/20/16 at 09:00 Isosorbide Dinitrate (Isordil) 10 mg TID PO ; Start 11/19/16 at 13:00 Methocarbamol (Robaxin) 500 mg Q8 PO ; Start 11/19/16 at 14:00 Ranolazine (Ranexa) 1,000 mg Q12 PO Last administered on 11/19/16 11:34; Admin Dose 1,000 MG; Start 11/19/16 at 11:00 Salmeterol Xinafoate/ Fluticasone (Advair 250/50 Diskus) 1 inh BID INH Last administered on 11/19/16 11:34; Admin Dose 1 INH; Start 11/19/16 at 11:00 Lorazepam 1 mg 1 mg Q6H PRN IV ANXIETY; Start 11/19/16 at 13:30 Magnesium Sulfate/ Sodium Chloride (Magnesium Sulfate/NS) 106 ml @ 35.333 mls/ hr ONCE ONCE IVPB ; Start 11/19/16 at 15:00; Stop 11/19/16 at 17:59 Procedures Procedures EKG: NSR, no acute or chronic ischemic findings. MRCP pending 2D echocardiogram done results pending FELICIANO HERNANDEZ Nov 19, 2016 14:53
[2016-11-19] MEDS ORDERED: ALBUTEROL 18 GM INHALER INH PRN (15:30)
[2016-11-19] MEDS: SOD CHLORIDE 0.9% 1,000 ML IV SCH (16:04)
[2016-11-19] MEDS: TIOTROPIUM 18 MCG CAPSULE INHA DEV INH SCH (16:30)
[2016-11-19 16:35] VITALS: BP 98/54; PULSE 78; RESP 20
[2016-11-19] MEDS: RIVAROXABAN 10 MG TABLET PO SCH (18:05)
--- NOTE | 2016-11-19 19:29 | RADRPT ---
PROCEDURE: MRI abdomen / MRCP CLINICAL INDICATION: Abdominal pain. History of cholecystectomy TECHNIQUE: MRI of the abdomen is performed without contrast utilizing axial T2 and T2 fat suppress ion sequences as well as in and out of phase imaging. The MRCP is performed and the MIP series subm itted for review. COMPARISON: CT abdomen and pelvis 07/08/2016 FINDINGS: The study is limited because of motion artifact. Visualized lower thorax: There is no evidence for consolidation or pleural effusion. Liver: Mildly enlarged and 19.6 cm with normal contour and signal intensity. There is no evidence o f mass lesion or ductal dilatation. Gallbladder: Changes of cholecystectomy are noted correlate with the provided history Common bile duct: There is no filling defect to suggest choledocholithiasis. The caliber of the du ct is normal estimated at 6.3 mm. The MRCP shows no evidence for intrahepatic or extrahepatic duct al dilatation, the ductal system is smoothly aligned with no evidence for filling defect. Pancreas: Fatty deposition within the pancreas is present without evidence of mass or pancreatitis. Spleen: Top normal in size with normal contour no evidence of mass lesion. Adrenal glands: Unremarkable bilaterally. Kidneys: Normal in size with no evidence for solid masses or hydronephrosis. Rounded hyperintense T 2 foci within the renal cortices bilaterally are consistent with incidental cysts. Trace amount of s table stranding of the perinephric fat is present. Stomach, visualized small bowel and visualized large intestine: No abnormalities are demonstrated. Abdominal aorta: Normal in caliber estimated at 2 cm. Inferior vena cava: Unremarkable. Vertebral bodies and osseous structures: Mild to moderate spondylosis of the lumbar spine is noted. Musculature and soft tissues: Unremarkable. RPTAT:HJJR IMPRESSION: 1. Post cholecystectomy changes with a normal MRCP and no evidence of choledocholithiasis, intrahep atic or extrahepatic ductal dilatation. 2. Mild hepatomegaly with normal liver signal intensity and contour. 3. Incidental bilateral renal cysts for which no imaging follow-up is recommended. Physician Brijesh Date Time Electronically viewed and signed by Physician Brijesh on 11/19/2016 19:29 /
[2016-11-19 20:10] VITALS: PULSE 80
[2016-11-19 20:27] VITALS: BP 95/59; RESP 16
[2016-11-19] MEDS: FAMOTIDINE 20 MG TAB PO SCH (20:39)
[2016-11-19] MEDS ORDERED: ATORVASTATIN 80 MG TAB PO SCH (21:00)
[2016-11-19 22:20] VITALS: BP 102/64; PULSE 82; RESP 20
[2016-11-20] VITALS (12 sets, daily range): BP systolic 95–109; BP diastolic 55–75; PULSE 66–81; RESP 18–20
[2016-11-20] MEDS: SOD CHLORIDE 0.9% 1,000 ML IV SCH (01:30)
[2016-11-20] MEDS: morphine 2 MG INJ IV PRN ×5 (02:39→20:51)
[2016-11-20] MEDS ORDERED: PANTOPRAZOLE (EC) 40 MG TAB PO SCH (06:00)
[2016-11-20] MEDS: METHOCARBAMOL 500 MG TAB PO SCH ×3 (06:00→21:00)
[2016-11-20 08:48] LABS: ALBUMIN 3.2 g/dl (3.3-4.9); ALBUMIN/GLOBULIN RATIO 1.1; BILIRUBIN,INDIRECT 0.4 mg/dl (0-1.1); BILIRUBIN,TOTAL 0.4 mg/dl (0.2-1.3); CALCIUM 8.3 mg/dl (8.4-10.2); CREATININE 1.05 mg/dl (0.61-1.24); TOTAL PROTEIN 6.1 g/dl (6.1-8.1)
[2016-11-20] MEDS ORDERED: RIVAROXABAN 10 MG TABLET PO SCH (09:00)
[2016-11-20] MEDS: RANOLAZINE (SR) 500 MG TAB PO SCH ×2 (09:05→20:48)
[2016-11-20] MEDS: CLOPIDOGREL 75 MG TAB PO SCH (09:05)
[2016-11-20] MEDS: FAMOTIDINE 20 MG TAB PO SCH ×2 (09:05→20:49)
[2016-11-20] MEDS: SALMETEROL/FLUTICASONE 250/50 INHA INH SCH ×2 (09:12→20:47)
[2016-11-20] MEDS: TIOTROPIUM 18 MCG CAPSULE INHA DEV INH SCH (09:13)
[2016-11-20] MEDS: ISOSORBIDE DINITRATE 10 MG TAB PO SCH ×3 (09:14→20:49)
[2016-11-20] MEDS: AMLODIPINE 5 MG TAB PO SCH (09:14)
[2016-11-20] MEDS: HYDROCODONE/APAP (5/325) TAB PO PRN ×2 (09:26→15:49)
[2016-11-20 10:26] LABS: TROPONIN-I 0.034 ng/ml (0.00-0.12)
[2016-11-20 10:31] LABS: CK-MB 0.77 ng/ml (0.0-2.4)
[2016-11-20] MEDS: MAGNESIUM HYDROXIDE 30ML CUP PO PRN (12:07)
--- NOTE | 2016-11-20 14:32 | PN ---
Date/Time of Note Date/Time of Note DATE: 11/20/16 TIME: 14:05 Assessment/Plan VTE Prophylaxis VTE Prophylaxis Intervention: SCD's Lines/Catheters IV Catheter Type (from Nrsg): Peripheral IV Assessment/Plan Assessment/Plan 62-year-old male with: 1. Chest pain, pressure, seems to be epigastric substernal radiating to the back and the shoulders, Lipase and Amylase back down to normal MRCP wnl Atypical nature of chest pain per Dr. Aquino Continue all cardiac medications, patient reports that he is on Plavix, Lipitor , Ranexa and Imdur along with Norvasc for blood pressure Getting records from [facility] where patient had EGD and will rx fpr H pylori if was dx then 2. Elevated lipase, possible pancreatitis, Repeat pancreatic enzymes this AM wnl and MRCP wnl Resume diet Patient denies regular or heavy alcohol use. LFTs abnormal therefore statins have been held. Will check fasting lipid panel 3. H pylori gastritis on EGD and biopsy from [facility] 07/02/16. Per patient not treated yet due to some interaction with his cardiac medications. I have double checked with pharmacy here at [facility] today and safe to give triple therapy with Azithromycin 1 g qdaily x 3 days +Amoxicillin 1 g po bid x 14 days +Protonix 40 mg po bid x 14 days regimen. Will initiate treatment today. 4. Hypertension: Continue home medications 5. Hyperlipidemia: Holding statin therapy due to abnormal AST/ALT 6. Tobacco use, possible COPD: Patient reports he has not smoked for the past 2 months, he is advised to quit. Continue Advair, Spiriva added, albuterol as needed. 7. Factor V Leyden mutation/deficiency: Continue Xarelto Prophylaxis: Patient already on Xarelto, Protonix for GI prophylaxis and reported gastritis Disposition: Resume diet and continue COPD treatment, continue outpatient cardiac medications and initiate triple rx for H pylori Gastritis. D/c plan in AM if stable. Subjective 24 Hr Interval Summary Free Text/Dictation Patient doing OK today Epigastric pain likely related to Gastritis, possible H pylori CE negative Pancreatic enzymes back down to normal this AM and resuming cardiac diet. Exam/Review of Systems Vital Signs Vitals Vital Signs Date Time Temp Pulse Resp B/P Pulse Ox O2 Delivery O2 Flow Rate FiO2 11/20/16 12:07 69 11/20/16 11:45 98.5 20 99/56 98 11/20/16 08:14 Nasal Cannula 4.0 Intake and Output 11/19/16 11/19/16 11/20/16 15:00 23:00 07:00 Intake Total 800 ml 800 ml Output Total 400 ml Balance 800 ml 400 ml Exam Constitutional: alert, oriented, well developed Respiratory: clear to auscultation, normal air movement Cardiovascular: nl pulses, regular rate and rhythm Gastrointestinal: soft, tender (epigastric ) Musculoskeletal: nl extremities to inspection, nl gait and stance Extremities: normal pulses 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, nl mental status, nl speech, nl strength Results Result Diagram: 11/19/16 1015 11/20/16 0744 Results 24 hrs Laboratory Tests Test 11/20/16 07:44 11/20/16 09:34 Sodium Level 139 Potassium Level 4.0 Chloride Level 109 Carbon Dioxide Level 28 Anion Gap 6 L Blood Urea Nitrogen 13 Creatinine 1.05 Glucose Level 74 # Calcium Level 8.3 L Magnesium Level 2.1 Total Bilirubin 0.4 Direct Bilirubin 0.00 Indirect Bilirubin 0.4 Aspartate Amino Transf (AST/SGOT) 64 #H Alanine Aminotransferase (ALT/SGPT) 125 H Alkaline Phosphatase 80 Total Protein 6.1 Albumin 3.2 L Globulin 2.90 Albumin/Globulin Ratio 1.10 Amylase Level 60 # Lipase 46 Creatine Kinase 30 Creatine Kinase Index 2.6 Creatinine Kinase MB (Mass) 0.77 Troponin I 0.034 Medications Medications Current Medications Nitroglycerin (Nitroglycerin (Sl Tab) 0.4 Mg) 1 tab Q5M PRN SL ANGINA Last administered on 11/19/16 12:09; Admin Dose 1 TAB; Start 11/19/16 at 10:00 Morphine Sulfate (morphine) 2 mg Q4H PRN IV PAIN LEVEL 7-10 Last administered on 11/20/16 12:07; Admin Dose 2 MG; Start 11/19/16 at 10:00 Ondansetron HCl (Zofran Inj) 4 mg Q6H PRN IV NAUSEA AND/OR VOMITING; Start 11/26 at 10:00 Acetaminophen (Tylenol Tab) 650 mg Q6H PRN PO PAIN LEVEL 1-3 OR FEVER; Start 11/19/16 at 10:00 Acetaminophen/ Hydrocodone Bitart ([place] (5/325)) 1 tab Q6H PRN PO PAIN LEVEL 4 -6; Start 11/19/16 at 10:00 Acetaminophen/ Hydrocodone Bitart ([place] (5/325)) 2 tab Q6H PRN PO PAIN LEVEL 7 -10 Last administered on 11/20/16 09:26; Admin Dose 2 TAB; Start 11/19/16 at 10:00 Docusate Sodium (Colace) 100 mg Q12H PRN PO CONSTIPATION; Start 11/19/16 at 10 :00 Magnesium Hydroxide (Milk Of Mag) 30 ml DAILY PRN PO CONSTIPATION Last administered on 11/20/16 12:07; Admin Dose 30 ML; Start 11/19/16 at 10:00 Bisacodyl (Dulcolax Supp) 10 mg DAILY PRN [place] CONSTIPATION; Start 11/19/16 at 10:00 Famotidine (Pepcid) 20 mg Q12 PO Last administered on 11/20/16 09:05; Admin Dose 20 MG; Start 11/19/16 at 21:00 Amlodipine Besylate (Norvasc) 5 mg DAILY PO Last administered on 11/20/16 09: 14; Admin Dose 5 MG; Start 11/20/16 at 09:00 Clopidogrel Bisulfate (plaVIX) 75 mg DAILY PO Last administered on 11/20/16 09:05; Admin Dose 75 MG; Start 11/20/16 at 09:00 Isosorbide Dinitrate (Isordil) 10 mg TID PO Last administered on 11/20/16 09: 14; Admin Dose 10 MG; Start 11/19/16 at 13:00 Methocarbamol (Robaxin) 500 mg Q8 PO Last administered on 11/20/16 13:25; Admin Dose 500 MG; Start 11/19/16 at 14:00 Ranolazine (Ranexa) 1,000 mg Q12 PO Last administered on 11/20/16 09:05; Admin Dose 1,000 MG; Start 11/19/16 at 11:00 Salmeterol Xinafoate/ Fluticasone (Advair 250/50 Diskus) 1 inh BID INH Last administered on 11/20/16 09:12; Admin Dose 1 INH; Start 11/19/16 at 11:00 Lorazepam (Ativan) 1 mg Q6H PRN IV ANXIETY Last administered on 11/19/16 17: 16; Admin Dose 1 MG; Start 11/19/16 at 13:30 Tiotropium [place] (Spiriva) 1 inh DAILY INH Last administered on 11/20/16 09 :13; Admin Dose 1 INH; Start 11/19/16 at 16:30 Pantoprazole (Protonix Tab) 40 mg DAILY@06 PO ; Start 11/20/16 at 06:00 FELICIANO HERNANDEZ Nov 20, 2016 14:15
[2016-11-20] MEDS: AZITHROMYCIN 250 MG TAB PO SCH (16:48)
[2016-11-20] MEDS: RIVAROXABAN 10 MG TABLET PO SCH (17:50)
[2016-11-20] MEDS: AMOXICILLIN 500 MG CAP PO SCH (20:48)
[2016-11-20] MEDS: PANTOPRAZOLE (EC) 40 MG TAB PO SCH (20:50)
[2016-11-20] MEDS ORDERED: CLARITHROMYCIN 500 MG TAB PO SCH (21:00)
[2016-11-21] VITALS (9 sets, daily range): BP systolic 93–116; BP diastolic 53–77; PULSE 63–66; RESP 18–20
[2016-11-21] MEDS: morphine 2 MG INJ IV PRN ×4 (01:28→13:47)
[2016-11-21] MEDS: MAGNESIUM HYDROXIDE 30ML CUP PO PRN (05:41)
[2016-11-21] MEDS: METHOCARBAMOL 500 MG TAB PO SCH ×2 (05:41→13:47)
[2016-11-21 08:46] LABS: BASOPHILS % 0.4 % (0.0-2.0); EOSINOPHILS # 0.2 10^3/ul (0.0-0.5); HEMATOCRIT 45.7 % (42.0-52.0); HEMOGLOBIN 14.2 g/dl (14.0-18.0); LYMPHOCYTES # 1.7 10^3/ul (0.8-2.9); LYMPHOCYTES % 21.5 % (15.0-51.0); MEAN CORPUSCULAR HEMOGLOBIN 26.7 pg (29.0-33.0); MEAN CORPUSCULAR HGB CONC 31.1 g/dl (32.0-37.0); MEAN CORPUSCULAR VOLUME 86.1 fl (82.0-101.0); MONOCYTE # 0.6 10^3/ul (0.3-0.9); MONOCYTES % 7.9 % (0.0-11.0); NEUTROPHIL # 5.2 10^3/ul (1.6-7.5); NEUTROPHILS % 66.9 % (39.0-77.0); PLATELET COUNT 170 10^3/UL (140-415); RED BLOOD COUNT 5.31 10^6/ul (4.70-6.10); RED CELL DISTRIBUTION WIDTH 15.6 % (11.5-14.5); WHITE BLOOD COUNT 7.8 10^3/ul (4.8-10.8)
--- NOTE | 2016-11-21 09:03 | RADRPT ---
Echocardiogram Report Patient Name: JURGEN ROSEN Gender: Male Date: 1955 Study Date: 19-Nov-2016 Technician Support Association: [email or web address] Location: [id number] Ref. Physician: DANNA RODRIGEZ Quality: Adequate Procedures: Transthoracic echocardiogram with complete 2D, M-Mode, and doppler examination. Indications: Coronary Artery Disease. 2D/M Mode Doppler Measurement Value Normal Ranges Measurement Value Normal Ranges LVIDd 2D 4.8 3.5 - 5.6 cm JOCELYN Vmax 2.7 cm2 LVIDs 2D 2.8 2.1 - 4.1 cm AV Peak Camilo 1.8 m/sec FS 2D 41.0 % AV Peak PG 13.0 mmHg LVPWd 2D 1.0 0.6 - 1.1 cm LVOT Peak Camilo 1.3 m/sec IVSd 2D 1.1 0.6 - 1.1 cm LVOT Peak PG 7.0 mmHg IVS/LVPW 2D 1.1 MV E Peak Camilo 0.8 m/sec AoR Diam 2D 2.4 2.0 - 3.7 cm MV A Peak Camilo 0.6 m/sec LA/Ao 2D 1 0 - 1 MV E/A 1.2 EDV 2D 111.0 cm3 MV Decel Time 187 msec ESV 2D 22.9 cm3 MV E/A 1.2 LA Dimen 2D 3.2 2.3 - 4.0 cm TR Peak Camilo 2.4 m/sec LVOT Diam 2.2 cm TR Peak PG 23.0 mmHg LVOT Area 3.8 cm2 RVSP 26.0 mmHg Findings Left Ventricle: Normal left ventricular systolic function. Normal left ventricular cavity size. Left ventricular wall thickness upper limits of normal. Mild concentric left ventricular hypertrophy. Ejection fraction is visually estimated at 65 %. Tissue Doppler/Mitral Doppler indices are consistent with impaired relaxation (Stage I diastolic dysfunction). Right Ventricle: Normal right ventricular size. Normal right ventricular systolic function. Left Atrium: The left atrium is normal in size. Right Atrium: The right atrium is normal in size. Mitral Valve: Mild mitral annular calcification. Trace mitral regurgitation. Aortic Valve: Normal appearance of the aortic valve. No significant aortic stenosis or insufficiency. Tricuspid Valve: Normal appearance of the tricuspid valve. Estimated peak PA systolic pressure 26 mmHg. There is trace to mild tricuspid regurgitation. Pulmonic Valve: Pulmonic valve not well visualized. There is mild pulmonic regurgitation. Pericardium: Normal pericardium with no significant pericardial effusion. Not well visualized. Aorta: Normal aortic root. IVC: Normal size and normal respiratory collapse consistent with normal right atrial pressure. Conclusions 1.Normal left ventricular systolic function. Normal left ventricular cavity size. Left ventricular wall thickness upper limits of normal. Mild concentric left ventricular hypertrophy. Ejection fraction is visually estimated at 65 %. Tissue Doppler/Mitral Doppler indices are consistent with impaired relaxation (Stage I diastolic dysfunction). 2.Mild mitral annular calcification. Trace mitral regurgitation. 3.Normal appearance of the aortic valve. No significant aortic stenosis or insufficiency. 4.Normal appearance of the tricuspid valve. Estimated peak PA systolic pressure 26 mmHg. There is trace to mild tricuspid regurgitation. 5.Pulmonic valve not well visualized. There is mild pulmonic regurgitation. 6.Normal pericardium with no significant pericardial effusion. Not well visualized. Electronically Signed By: Danna Rodrigez 21-Nov-2016 09:01:56 -0700 Patient Name: JURGEN ROSEN Study Date: 19-Nov-2016 [id number]
[2016-11-21 09:25] LABS: ALBUMIN 3.2 g/dl (3.3-4.9); ALBUMIN/GLOBULIN RATIO 1.06; BILIRUBIN,INDIRECT 0.2 mg/dl (0-1.1); BILIRUBIN,TOTAL 0.2 mg/dl (0.2-1.3); CALCIUM 8.7 mg/dl (8.4-10.2); CREATININE 0.94 mg/dl (0.61-1.24); POTASSIUM 4.3 mmol/L (3.5-5.1); TOTAL PROTEIN 6.2 g/dl (6.1-8.1)
[2016-11-21 09:30] LABS: MAGNESIUM 2.1 mg/dl (1.7-2.5); PHOSPHORUS 2.7 mg/dl (2.5-4.9)
[2016-11-21] MEDS: AZITHROMYCIN 250 MG TAB PO SCH (10:01)
[2016-11-21] MEDS: FAMOTIDINE 20 MG TAB PO SCH (10:01)
[2016-11-21] MEDS: ISOSORBIDE DINITRATE 10 MG TAB PO SCH ×2 (10:02→12:27)
[2016-11-21] MEDS: AMOXICILLIN 500 MG CAP PO SCH (10:02)
[2016-11-21] MEDS: RANOLAZINE (SR) 500 MG TAB PO SCH (10:02)
[2016-11-21] MEDS: TIOTROPIUM 18 MCG CAPSULE INHA DEV INH SCH (10:02)
[2016-11-21] MEDS: SALMETEROL/FLUTICASONE 250/50 INHA INH SCH (10:02)
[2016-11-21] MEDS: AMLODIPINE 5 MG TAB PO SCH (10:02)
[2016-11-21] MEDS: CLOPIDOGREL 75 MG TAB PO SCH (10:02)
[2016-11-21] MEDS: PANTOPRAZOLE (EC) 40 MG TAB PO SCH (10:02)
--- NOTE | 2016-11-21 14:37 | PN ---
Date/Time of Note Date/Time of Note DATE: 11/21/16 TIME: 14:26 Assessment/Plan VTE Prophylaxis VTE Prophylaxis Intervention: SCD's Lines/Catheters IV Catheter Type (from Nrsg): Peripheral IV Assessment/Plan Assessment/Plan 62-year-old male with: 1. Chest pain, pressure, seems to be epigastric substernal radiating to the back and the shoulders, Lipase and Amylase back down to normal MRCP wnl Atypical nature of chest pain per Dr. Aquino Continue all cardiac medications, patient reports that he is on Plavix, Lipitor , Ranexa and Imdur along with Norvasc for blood pressure Confirmed to have H pylori gastritis from EGD at [facility] few month ago 2. Elevated lipase, possible pancreatitis, resolved Pancreatic enzymes normalized and MRCP wnl Tolerating diet Patient denies regular or heavy alcohol use. LFTs back to normal, will resume statins 3. H pylori gastritis on EGD and biopsy from [facility] 07/02/16. Per patient not treated yet due to some interaction with his cardiac medications. I have double checked with pharmacy here at [facility] today and safe to give triple therapy with Azithromycin 1 g qdaily x 3 days +Amoxicillin 1 g po bid x 14 days +Protonix 40 mg po bid x 14 days regimen. Continue regimen. 4. Hypertension: Continue home medications 5. Hyperlipidemia: Holding statin therapy due to abnormal AST/ALT 6. Tobacco use, possible COPD: Patient reports he has not smoked for the past 2 months, he is advised to quit. Continue Advair, Spiriva added, albuterol as needed. 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 It is confirmed that he has unfortunately coronary vasospasms happening on and off and causing his chest discomfort. He also does have H pylori gastritis for which has been started on treatment as of yesterday. Exam/Review of Systems Vital Signs Vitals Vital Signs Date Time Temp Pulse Resp B/P Pulse Ox O2 Delivery O2 Flow Rate FiO2 11/21/16 11:55 98.4 77 18 93/53 92 11/20/16 20:02 Nasal Cannula 4.0 Intake and Output 11/20/16 11/20/16 11/21/16 15:00 23:00 07:00 Intake Total 1520 ml 550 ml Output Total 375 ml 450 ml Balance 1145 ml 100 ml Exam Constitutional: alert, oriented Respiratory: clear to auscultation, normal air movement Cardiovascular: nl pulses, regular rate and rhythm Gastrointestinal: non-tender, soft Musculoskeletal: nl extremities to inspection, nl gait and stance Extremities: normal pulses, other (No edema, clubbing or cyanosis) Neurological: COSTUME DIRECTOR II-XII intact, nl mental status, nl speech Results Result Diagram: 11/21/1673311/21/16 0734 Results 24 hrs Laboratory Tests Test 11/21/16 07:34 White Blood Count 7.8 # Red Blood Count 5.31 Hemoglobin 14.2 Hematocrit 45.7 Mean Corpuscular Volume 86.1 Mean Corpuscular Hemoglobin 26.7 L Mean Corpuscular Hemoglobin Concent 31.1 L Red Cell Distribution Width 15.6 H Platelet Count 170 Mean Platelet Volume 10.0 Neutrophils % 66.9 Lymphocytes % 21.5 Monocytes % 7.9 Eosinophils % 3.0 Basophils % 0.4 Nucleated Red Blood Cells % 0.0 Neutrophils # 5.2 Lymphocytes # 1.7 Monocytes # 0.6 Eosinophils # 0.2 Basophils # 0.0 Nucleated Red Blood Cells # 0.0 Sodium Level 137 Potassium Level 4.3 Chloride Level 105 Carbon Dioxide Level 30 Anion Gap 6 L Blood Urea Nitrogen 13 Creatinine 0.94 Glucose Level 74 Calcium Level 8.7 Phosphorus Level 2.7 Magnesium Level 2.1 Total Bilirubin 0.2 Direct Bilirubin 0.00 Indirect Bilirubin 0.2 Aspartate Amino Transf (AST/SGOT) 33 Alanine Aminotransferase (ALT/SGPT) 91 H Alkaline Phosphatase 74 Total Protein 6.2 Albumin 3.2 L Globulin 3.00 Albumin/Globulin Ratio 1.06 Medications Medications Current Medications Nitroglycerin (Nitroglycerin (Sl Tab) 0.4 Mg) 1 tab Q5M PRN SL ANGINA Last administered on 11/19/16 12:09; Admin Dose 1 TAB; Start 11/19/16 at 10:00 Morphine Sulfate (morphine) 2 mg Q4H PRN IV PAIN LEVEL 7-10 Last administered on 11/21/16 13:47; Admin Dose 2 MG; Start 11/19/16 at 10:00 Ondansetron HCl (Zofran Inj) 4 mg Q6H PRN IV NAUSEA AND/OR VOMITING; Start 11/26 at 10:00 Acetaminophen (Tylenol Tab) 650 mg Q6H PRN PO PAIN LEVEL 1-3 OR FEVER; Start 11/19/16 at 10:00 Acetaminophen/ Hydrocodone Bitart ([place] (5/325)) 1 tab Q6H PRN PO PAIN LEVEL 4 -6; Start 11/19/16 at 10:00 Acetaminophen/ Hydrocodone Bitart ([place] (5/325)) 2 tab Q6H PRN PO PAIN LEVEL 7 -10 Last administered on 11/20/16 15:49; Admin Dose 2 TAB; Start 11/19/16 at 10:00 Docusate Sodium (Colace) 100 mg Q12H PRN PO CONSTIPATION Last administered on 11/21/16 05:40; Admin Dose 100 MG; Start 11/19/16 at 10:00 Magnesium Hydroxide (Milk Of Mag) 30 ml DAILY PRN PO CONSTIPATION Last administered on 11/21/16 05:41; Admin Dose 30 ML; Start 11/19/16 at 10:00 Bisacodyl (Dulcolax Supp) 10 mg DAILY PRN ID CONSTIPATION; Start 11/19/16 at 10:00 Famotidine (Pepcid) 20 mg Q12 PO Last administered on 11/21/16 10:01; Admin Dose 20 MG; Start 11/19/16 at 21:00 Amlodipine Besylate (Norvasc) 5 mg DAILY PO Last administered on 11/21/16 10: 02; Admin Dose 5 MG; Start 11/20/16 at 09:00 Clopidogrel Bisulfate (plaVIX) 75 mg DAILY PO Last administered on 11/21/16 10:02; Admin Dose 75 MG; Start 11/20/16 at 09:00 Isosorbide Dinitrate (Isordil) 10 mg TID PO Last administered on 11/21/16 10: 02; Admin Dose 10 MG; Start 11/19/16 at 13:00 Methocarbamol (Robaxin) 500 mg Q8 PO Last administered on 11/21/16 13:47; Admin Dose 500 MG; Start 11/19/16 at 14:00 Ranolazine (Ranexa) 1,000 mg Q12 PO Last administered on 11/21/16 10:02; Admin Dose 1,000 MG; Start 11/19/16 at 11:00 Salmeterol Xinafoate/ Fluticasone (Advair 250/50 Diskus) 1 inh BID INH Last administered on 11/21/16 10:02; Admin Dose 1 INH; Start 11/19/16 at 11:00 Lorazepam (Ativan) 1 mg Q6H PRN IV ANXIETY Last administered on 11/19/16 17: 16; Admin Dose 1 MG; Start 11/19/16 at 13:30 Tiotropium [place] (Spiriva) 1 inh DAILY INH Last administered on 11/21/16 10 :02; Admin Dose 1 INH; Start 11/19/16 at 16:30 Pantoprazole (Protonix Tab) 40 mg BID PO Last administered on 11/21/16 10:02 ; Admin Dose 40 MG; Start 11/20/16 at 21:00 Amoxicillin (Amoxicillin) 1,000 mg Q12 PO Last administered on 11/21/16 10:02 ; Admin Dose 1,000 MG; Start 11/20/16 at 21:00 Azithromycin (Zithromax) 1,000 mg DAILY PO Last administered on 11/21/16 10: 01; Admin Dose 1,000 MG; Start 11/20/16 at 15:30; Stop 11/22/16 at 09:01 FELICIANO HERNANDEZ Nov 21, 2016 14:37
--- NOTE | 2016-11-21 14:45 | PDOCDIS ---
Discharge Instructions CONDITION Patient Condition: Good HOME CARE INSTRUCTIONS: Diet Instructions: Low Fat /CholesterolSpecial Diet: Cardiac diet ACTIVITY: Activity Restrictions: No Restrictions FOLLOW UP/APPOINTMENTS Follow-up Plan Follow-up with GI as needed as an outpatient after treatment for H pylori gastritis Follow-up with primary care physician within 1 week Follow-up with cardiology, Dr. Aquino, in 1-2 weeks FELICIANO HERNANDEZ Nov 21, 2016 14:45
[2016-11-21] MEDS ORDERED: ATOR40TA68 PO (14:50)
[2016-11-21] MEDS ORDERED: TIOT18CA INH (14:50)
[2016-11-21] MEDS ORDERED: AZIT250T6 PO (14:50)
[2016-11-21] MEDS ORDERED: AMOX500C2 PO (14:50)
[2016-11-21] MEDS ORDERED: PANT40TA4 PO (14:50)
[2016-11-21] MEDS ORDERED: ALBU18HF INH (14:50)
--- NOTE | 2016-11-21 20:03 | PN ---
Date/Time of Note Date/Time of Note DATE: 11/21/16 TIME: 20:00 Assessment/Plan VTE Prophylaxis VTE Prophylaxis Intervention: SCD's Lines/Catheters IV Catheter Type (from Nrsg): [place] Assessment/Plan Chief Complaint/Hosp Course The patient with hx of CAD and multiple stents last one in july of 2016 in . He has a hx of Factor V Leyden Def on xarelto in the past, TIA, COPD and presented with atypical chest pain to [facility] wtih nromal trops and no acute ischemia byekg. His pin continues to be atypical and lasting hours at a time with no true exertional symtpoms, appear comfrotable an o ekg changes Problems: Assessment/Plan Atypical chest pain Hx of CAD with many stents s/p PCI 07/27 Hx of TIA Factor V Leyden Def HTN EF 50% in 2015 Pancreatitis -continue asa/plavix -rx coreg/zestril onc bp beter and stable -off atrovastatin due to Increased LFTs -consdier warfarin for Factor V Leyde DEf and hx of TIA instead of xarelto if necessary -no cardiolyte necessary -d/c planning Subjective 24 Hr Interval Summary Free Text/Dictation the aptient with no chest pain and no sob Exam/Review of Systems Vital Signs Vitals Vital Signs Date Time Temp Pulse Resp B/P Pulse Ox O2 Delivery O2 Flow Rate FiO2 11/21/16 11:55 98.4 77 18 93/53 92 11/20/16 20:02 Nasal Cannula 4.0 Intake and Output 11/20/16 11/20/16 11/21/16 15:00 23:00 07:00 Intake Total 1520 ml 550 ml Output Total 375 ml 450 ml Balance 1145 ml 100 ml Results Result Diagram: 11/21/16 0734 11/21/16 0734 Results 24 hrs Laboratory Tests Test 11/21/16 07:34 White Blood Count 7.8 # Red Blood Count 5.31 Hemoglobin 14.2 Hematocrit 45.7 Mean Corpuscular Volume 86.1 Mean Corpuscular Hemoglobin 26.7 L Mean Corpuscular Hemoglobin Concent 31.1 L Red Cell Distribution Width 15.6 H Platelet Count 170 Mean Platelet Volume 10.0 Neutrophils % 66.9 Lymphocytes % 21.5 Monocytes % 7.9 Eosinophils % 3.0 Basophils % 0.4 Nucleated Red Blood Cells % 0.0 Neutrophils # 5.2 Lymphocytes # 1.7 Monocytes # 0.6 Eosinophils # 0.2 Basophils # 0.0 Nucleated Red Blood Cells # 0.0 Sodium Level 137 Potassium Level 4.3 Chloride Level 105 Carbon Dioxide Level 30 Anion Gap 6 L Blood Urea Nitrogen 13 Creatinine 0.94 Glucose Level 74 Calcium Level 8.7 Phosphorus Level 2.7 Magnesium Level 2.1 Total Bilirubin 0.2 Direct Bilirubin 0.00 Indirect Bilirubin 0.2 Aspartate Amino Transf (AST/SGOT) 33 Alanine Aminotransferase (ALT/SGPT) 91 H Alkaline Phosphatase 74 Total Protein 6.2 Albumin 3.2 L Globulin 3.00 Albumin/Globulin Ratio 1.06 DANNA RODRIGEZ MD Nov 21, 2016 20:03
--- NOTE | 2016-11-22 15:59 | RADRPT ---
Vent Rate: 72 bpm RR Interval: 0 msec [place] Interval: 190 msec QRS Duration: 90 msec QT Interval: 384 msec QTC Interval: 420 msec P-R-T [place]: 68 - 71 - 62 degrees Normal sinus rhythm Normal ECG Electronically Signed By: Devin Fishman [id number]
== END 2016-11-21 16:30 | disposition home or self-care (01) ==
LOC: INTOOBSV 08:12 → MS4 08:12
PROVIDERS: ADMIT Legal Medicine; ATTEND Legal Medicine
DX: R07.89 Other chest pain (principal); I25.10 Atherosclerotic heart disease of native coronary artery without angina pectoris; Z95.5 Presence of coronary angioplasty implant and graft; Z86.73 Personal history of transient ischemic attack (TIA), and cerebral infarction without residual deficits; I10 Essential (primary) hypertension; K85.90 Acute pancreatitis without necrosis or infection, unspecified; K29.70 Gastritis, unspecified, without bleeding; E78.5 Hyperlipidemia, unspecified; F17.200 Nicotine dependence, unspecified, uncomplicated; D68.2 Hereditary deficiency of other clotting factors; B96.81 Helicobacter pylori [H. pylori] as the cause of diseases classified elsewhere; J44.9 Chronic obstructive pulmonary disease, unspecified
CPT/HCPCS: 74181; 80053; 80061; 82150; 82550; 82553; 83690; 83735; 84100; 84484; 85025; 87081; 93005; 93306; J2060; J2270; J3475; J7030; Z7500; Z7610; 99217; G0378

== ENCOUNTER 2017-01-19 17:50 | Inpatient (IN) | payer OTHER ==
[~2017-01-19] VITALS: Ht 175.3 cm; Wt 94.9 kg
[~2017-01-19 17:50] MED LIST changes: +ALBU18HF INH; +AMOX500C2 PO; +ATOR40TA68 PO; -ATOR80TA75 PO; +AZIT250T13 PO; -HYDR-906 PO; -NAPR-688 PO; -NIT4 SL; +NITR0.4T39 SL; +PANT40TA4 PO; -RANI150T9 PO; +TIOT18CA INH
--- NOTE | 2017-01-19 20:03 | ERD ---
ER Documentation Chief Complaint Chief Complaint Complains of chest pain x 1 hr ago HPI 61-year-old man here with sharp nonexertional nonradiating chest pain similar multiple previous episodes, he used nitroglycerin at home but it did not help. He has this on a regular basis and it is associated with anxiety, although the patient does have coronary artery disease and factor V Leyden deficiency. He denies cough, no calf or leg swelling, no fevers or chills, no vomiting or diarrhea. ROS All systems reviewed and are negative except as per history of present illness. Medications Home Meds Active Scripts Atorvastatin* (Atorvastatin*) 40 Mg Tablet, 40 MG PO QHS, #30 TAB Prov:DAVIDRYAN PaulinoVASU Terry 11/21/16 Albuterol Sulfate* (Ventolin HFA*) 18 Gm Hfa.aer.ad, 2 PUFF INH Q6HWA RESP THERAPY Y for SHORTNESS OF BREATH, #1 INHALER Prov:RYAN HERNANDEZVASU Terry 11/21/16 Pantoprazole* (Pantoprazole*) 40 Mg Tablet.dr, 40 MG PO BID for 13 Days Prov:FELICIANO HERNANDEZ 11/21/16 Tiotropium [place]* (Spiriva*) 18 Mcg Cap.w.dev, 1 INH INH DAILY, #1 INHALER 3 Refills Prov:DAVIDRYAN PaulinoVASU Terry 11/21/16 Azithromycin* (Azithromycin*) 250 Mg Tablet, 1000 MG PO DAILY for 1 Day, TAB 4 tabs (1000 mg) on 11/23 Prov:RYAN HERNANDEZVASU Terry 11/21/16 Amoxicillin* (Amoxicillin*) 500 Mg Cap, 1000 MG PO Q12 for 13 Days, CAP Prov:DAVIDRYAN PaulinoVASU Terry 11/21/16 Methocarbamol* (Robaxin*) 500 Mg Tab, 500 MG PO Q8, #14 TAB Prov:KIESHA BOLAND DO 07/08/16 Amlodipine Besylate* (Amlodipine Besylate*) 5 Mg Tablet, 5 MG PO DAILY for 30 Days, TAB 3 Refills Prov:DAVIDFELICIANO Paulino 04/25/16 Clopidogrel Bisulfate (Clopidogrel) 75 Mg Tablet, 75 MG PO DAILY for 30 Days, TAB 3 Refills Prov:FELICIANO HERNANDEZ 04/25/16 Ranolazine* (Ranexa*) 500 Mg Tab.sr.12h, 1000 MG PO Q12 for 30 Days, TAB 3 Refills Prov:FELICIANO HERNANDEZ 04/25/16 Salmeterol Xinaf/Fluticasone* (Advair*) 250-50 Diskus Inhaler, 1 INH INH BID for 30 Days, 3 Refills Prov:FELICIANO HERNANDEZ 04/25/16 Isosorbide Dinitrate* (Isordil*) 10 Mg Tablet, 10 MG PO TID for 30 Days, TAB Prov:ALEJANDRA HOPKINS 01/12/16 Reported Medications Nitroglycerin* (Nitrostat*) 0.4 Mg Tab.subl, 0.4 MG SL Q5MIN Y for CHEST PAIN, BOTTLE 09/21/15 Rivaroxaban* (Xarelto*) 10 Mg Tablet, 10 MG PO DAILY, TAB 08/20/15 Allergies Allergies: Coded Allergies: No Known Allergy (Unverified , 04/22/16) PMhx/Soc CAD and multiple stents last one in july of 2016, Factor V Leyden deficiency on rivaroxaban, TIA, COPD, dyslipidemia, previous pancreatitis, recurrent atypical chest pain, hypertension History of Surgery: Yes (stent placement) Anesthesia Reaction: No Hx Neurological Disorder: Yes (TIA) Hx Respiratory Disorders: Yes (COPD ) Hx Cardiac Disorders: Yes (CAD, Stents, MIx4, Coronary vaso-spasms, HTN) Hx Psychiatric Problems: No Hx Miscellaneous Medical Probl: No Hx Alcohol Use: No Hx Substance Use: No Hx Tobacco Use: Yes FmHx Family History: No diabetes Physical Exam Vitals Vital Signs Date Time Temp Pulse Resp B/P Pulse Ox O2 Delivery O2 Flow Rate FiO2 01/19/17 17:57 98.7 110 20 130/74 98 Physical Exam GENERAL: Well-developed, well-nourished, well-hydrated, in no apparent distress , looks nontoxic in appearance HEENT: Moist mucous membranes, pink conjunctiva, no cervical spine tenderness or step-off deformities, no goiter, no jaundice or icterus, extraocular movements intact without pain. No submandibular induration, and no pharyngeal erythema NEURO: Alert and oriented 3, cranial nerves II through XII intact bilaterally, pupils equal round reactive to light, no focal deficits or facial asymmetry, sensation intact distally Strength 5/5 in upper and lower extremities bilaterally CARDIAC: Regular rate and rhythm, no murmurs rubs or gallops LUNGS: Clear bilaterally no wheezing crackles or stridor ABDOMEN: Soft nontender, no guarding, no rigidity, no rebound, no psoas sign no obturator sign. Normoactive bowel sounds SKIN: Warm and dry to touch, no abrasions, contusions, or hematomas, no lacerations, no ecchymosis, no target lesions, and without ulcers EXTREMITIES: No clubbing cyanosis or edema, calves are bilaterally symmetrical, no Homans sign, no popliteal cord sign. Distal pulses equal and bilateral PSYCH: Normal affect without agitation or irritability Result Diagram: 01/19/17201901/19/172019 Results 24 hrs Laboratory Tests Test 01/19/17 20:20 White Blood Count 8.410^3/ul Red Blood Count 5.3710^6/ul Hemoglobin 14.8g/dl Hematocrit 46.3% Mean Corpuscular Volume 86.2fl Mean Corpuscular Hemoglobin 27.6pg Mean Corpuscular Hemoglobin Concent 32.0g/dl Red Cell Distribution Width 15.4% Platelet Count 06125^3/UL Mean Platelet Volume 9.9fl Neutrophils % 66.0% Lymphocytes % 22.2% Monocytes % 8.0% Eosinophils % 3.2% Basophils % 0.4% Nucleated Red Blood Cells % 0.0/100WBC Neutrophils # 5.510^3/ul Lymphocytes # 1.910^3/ul Monocytes # 0.710^3/ul Eosinophils # 0.310^3/ul Basophils # 0.010^3/ul Nucleated Red Blood Cells # 0.010^3/ul Sodium Level 145mmol/L Potassium Level 4.5mmol/L Chloride Level 111mmol/L Carbon Dioxide Level 26mmol/L Anion Gap 13 Blood Urea Nitrogen 12mg/dl Creatinine 0.85mg/dl Glucose Level 108mg/dl Calcium Level 9.2mg/dl Total Bilirubin 0.2mg/dl Direct Bilirubin 0.00mg/dl Indirect Bilirubin 0.2mg/dl Aspartate Amino Transf (AST/SGOT) 19IU/L Alanine Aminotransferase (ALT/SGPT) 34IU/L Alkaline Phosphatase 47IU/L Troponin I 0.049ng/ml Total Protein 6.7g/dl Albumin 3.7g/dl Globulin 3.00g/dl Albumin/Globulin Ratio 1.23 Lipase 35U/L Current Medications Medications (Trade) Dose Ordered Sig/Bre Route PRN Reason Start Time Stop Time Status Last Admin Dose Admin Lorazepam 1 mg 1 mg ONCE ONCE PO 01/19/17 20:30 01/19/17 20:31 DC 01/19/17 20:30 Sodium Chloride (NS) 500 ml @ 500 mls/hr Q1H STAT IV 01/19/17 20:17 01/19/17 21:16 DC 01/19/17 20:43 Hydromorphone HCl (Dilaudid) 1 mg ONCE STAT IV 01/19/17 21:50 01/19/17 21:51 DC 01/19/17 21:58 Procedures/MDM IV line was established patient was placed on cafeteria monitor rhythm strip revealed a sinus tachycardia at 100 bpm with upright P and T waves. Patient was afebrile I administered lorazepam 1 mg p.o. for anxiety and 1 L normal saline IV 1. EKG performed, read by me: Sinus tachycardia at 109 bpm, normal sinus rhythm, normal axis, no acute ST segment changes, narrow QRS complex, with good R-wave progression in precordial leads. CBC and electrolytes are normal, liver function tests were normal, troponin was negative. For continued chest pain I administered hydromorphone 1 mg IV 1 and aspirin 162 mg p.o. for cardioprotective measures. I spoke to his granite polisher machine electronic equipment installer Dr. Ochoa guarding the patient's presentation, symptomatology, and PMH. He agreed with me that we will admit the patient to telemetry setting for continued medical management cardiology consultation. Departure Diagnosis: Primary Impression: Chest pain Chest pain type: unspecified Qualified Code: R07.9 - Chest pain, unspecified type Additional Impressions: Chronic pain Chronic pain type: chronic pain syndrome Qualified Code: G89.4 - Chronic pain syndrome Anxiety attack Condition: TAI Neal MD Jan 19, 2017 20:03
[2017-01-19] MEDS ORDERED: SOD CHLORIDE 0.9% 500 ML IV STA (20:17)
[2017-01-19] MEDS ORDERED: LORAZEPAM 1 MG TAB PO ONE (20:30)
[2017-01-19 20:38] LABS: BASOPHILS % 0.4 % (0.0-2.0); EOSINOPHILS # 0.3 10^3/ul (0.0-0.5); EOSINOPHILS % 3.2 % (0.0-7.0); HEMATOCRIT 46.3 % (42.0-52.0); HEMOGLOBIN 14.8 g/dl (14.0-18.0); LYMPHOCYTES # 1.9 10^3/ul (0.8-2.9); LYMPHOCYTES % 22.2 % (15.0-51.0); MEAN CORPUSCULAR HEMOGLOBIN 27.6 pg (29.0-33.0); MEAN CORPUSCULAR VOLUME 86.2 fl (82.0-101.0); MEAN PLATELET VOLUME 9.9 fl (7.4-10.4); MONOCYTE # 0.7 10^3/ul (0.3-0.9); NEUTROPHIL # 5.5 10^3/ul (1.6-7.5); PLATELET COUNT 208 10^3/UL (140-415); RED BLOOD COUNT 5.37 10^6/ul (4.70-6.10); RED CELL DISTRIBUTION WIDTH 15.4 % (11.5-14.5); WHITE BLOOD COUNT 8.4 10^3/ul (4.8-10.8)
[2017-01-19 21:02] LABS: ALBUMIN 3.7 g/dl (3.3-4.9); ALBUMIN/GLOBULIN RATIO 1.23; BILIRUBIN,INDIRECT 0.2 mg/dl (0-1.1); BILIRUBIN,TOTAL 0.2 mg/dl (0.2-1.3); CALCIUM 9.2 mg/dl (8.4-10.2); CREATININE 0.85 mg/dl (0.61-1.24); POTASSIUM 4.5 mmol/L (3.5-5.1); TOTAL PROTEIN 6.7 g/dl (6.1-8.1)
[2017-01-19 21:14] LABS: TROPONIN-I 0.049 ng/ml (0.00-0.12)
[2017-01-19] MEDS ORDERED: HYDROmorphONE 1 MG/ML SYG IV STA (21:50)
[2017-01-19] MEDS ORDERED: ASPIRIN 81 MG TAB PO ONE (22:30)
[2017-01-20] VITALS (8 sets, daily range): BP systolic 103–108; BP diastolic 60–70; PULSE 67–81; RESP 19; Ht 175.3 cm; Wt 94.9 kg
[2017-01-20] MEDS ORDERED: ONDANSETRON 4 MG INJ IV PRN (00:30)
[2017-01-20] MEDS ORDERED: NITROGLYCERIN (SL) 0.4 MG TAB SL PRN (00:30)
[2017-01-20] MEDS ORDERED: ALBUTEROL/IPRATROPIUM (NEB) 3 ML AMP HHN PRN (00:30)
[2017-01-20] MEDS: HYDROmorphONE 1 MG/ML SYG IV PRN ×4 (00:54→13:58)
[2017-01-20] MEDS ORDERED: AL HYDROX/MG HYDROX/SIMETH 30 ML CUP PO PRN (01:00)
[2017-01-20] MEDS ORDERED: LORAZEPAM 2 MG INJ IV PRN (01:00)
[2017-01-20] MEDS ORDERED: ZOLPIDEM 5 MG TAB PO PRN (01:00)
[2017-01-20] MEDS ORDERED: PANTOPRAZOLE (EC) 40 MG TAB PO ONE (01:01)
--- NOTE | 2017-01-20 01:07 | HP ---
Date/Time of Note Date/Time of Note DATE: 01/20/17 TIME: 00:41 Assessment/Plan VTE Prophylaxis VTE Prophylaxis Intervention: ambulation, SCD's, other (on Xarelto) Lines/Catheters IV Catheter Type (from [facility]): Peripheral IV Central line still needed: No Urinary Cath still in place: No Assessment/Plan Problems: (1) Chest pain in adult Status: Acute Comment: Since he is high risk of cardiac event due to CAD S/P PCI,smoking and stressful lifestyle. He is admitted to Telemetry to monitor any arrhythm Serial troponin D dimer checked .If it is high,CTA is warranted Xarelto and plavix to be continued. Statin resumed (2) CAD S/P percutaneous coronary angioplasty Status: Chronic Comment: See management as mentioned as above. (3) GERD (gastroesophageal reflux disease) Status: Acute Comment: Protonix given Maalox given as needed for GI upset. (4) Dehydration with hypernatremia Status: Acute Comment: IV fluid given CMP repeated in A.M. (5) Anxiety attack Status: Acute Comment: Ativan given for anxiety. It is more like chest pain related to anxiety attack but he is high risk to have [place] . Dr. Ochoa is consulted Urine drug screen Dilaudid /Zofran given as needed for sever chest pain (6) Factor V Leiden Status: Chronic Comment: Xarelto resumed. D dimer checked to see if he needs CTA to R/O PE (7) HTN (hypertension) Status: Chronic Comment: BP meds resumed Qualifiers: Hypertension type: essential hypertension Qualified Code: I10 - Essential hypertension (8) Fatty liver Status: Chronic Comment: diet and exercise (9) Chronic stable angina Status: Chronic Comment: Ranexa resumed. HPI/ROS Admit Date/Time Admit Date/Time Jan 19, 2017 at 23:29 Hx of Present Illness This is a 61-year-old man with significant medical illness of CAD S/P PCI in and again in [place] per patient this year ,GERD,chronic stable angina on Ranexa,GERD,Panic/anxiety disorder who is admitted here due to acute mid sternal exertional nonradiating chest pain similar multiple previous episodes, he went home and trying to rest and took nitroglycerin twice and [place] for pain without good result at home . He denied fever nor chill. The chest pain was not related to feeling nauseated but short of breath. No PND nor orthopnea. He has this on a regular basis and it is associated with anxiety, although the patient does have coronary artery disease and factor V Leyden deficiency. He denies cough, no calf or leg swelling, no fevers or chills, no vomiting or diarrhea. He stated that he has been having epigastric pain off and on for a few months. MRI showed normal MRCP but fatty liver. Negative stress test on 02/15/2016 CTA Negative on 04/22/2016 Echocardiogram done 11/2016 showed normal EF . Normal LV size without valvular abnormality. ROS He is afebrile. He was short of breath and he has persistent chest pain but resolved after IV Dilaudid /Zofran given at ER. Now he is chest pain free. Constitutional: No chills, No diaphoresis, No disoriented, No fatigue, No febrile, No improved, No nausea, No no complaints, No other, No poor po, No weight change Eyes: No discharge, No no complaints, No other, No pain, No redness, No visual change ENT: No bleeding, No congestion, No discharge, No dysphagia, No no complaints, No other, No pain, No sore throat Respiratory: shortness of breath, No cough, No no complaints, No other, No pain, No pleuritic pain, No sputum, No wheezing Cardiovascular: No chest pain, No edema, No lightheadedness, No no complaints, No orthopenea, No other, No palpitations, No paroxysmal nocturnal dyspnea Gastrointestinal: other (bloating stomach), pain (epigastric pain ), No blood, No constipation, No decreased appetite, No diarrhea, No flatus, No nausea, No no complaints, No passing stool, No vomiting Genitourinary: No bleeding, No discharge, No dysuria, No flank pain, No hematuria, No no complaints, No other Musculoskeletal: No back pain, No bone/joint pain, No neck pain, No no complaints, No other, No restricted range of motion, No swelling Skin: No bruising, No erythema, No laceration, No no complaints, No other, No pruritis, No rash, No skin lesions Neurologic: No confusion, No dizziness, No focal-weakness, No headache, No no complaints, No other, No seizure, No syncope Endocrine: No dry skin, No no complaints, No other, No polydypsia, No polyuria , No temp intolerance, No weight change Lymphatic: No adenopathy, No lymphadema, No no complaints, No other, No tender nodes Psychological: anxiety, No confusion, No depression, No nl mood/affect, No no complaints, No other, No suicidal PMH/Family/Social Past Medical History Medical History: angina (chronic stable angina), coronary artery disease, high cholesterol, hypertension, irritable bowel syndrome, other (Factor V Leiden deficiency) Past Surgical History Past Surgical Hx: cholecystectomy Family History Significant Family History: heart disease (mother got valvular surgery), diabetes (Father and sister are diabetic. ) Social History Alcohol Use: none Smoking Status: Current every day smoker (1 pack every other day for more than 45 years) Drug Use: none Exam/Review of Systems Vital Signs Vitals Vital Signs Date Time Temp Pulse Resp B/P Pulse Ox O2 Delivery O2 Flow Rate FiO2 01/19/17 23:48 73 14 112/80 99 Nasal Cannula 2.0 01/19/17 17:57 98.7 Exam Constitutional: alert, oriented, other (obese,not looked sick nor septic) Psych: anxiety, No confusion, No depression, No nl mood/affect, No no complaints, No other, No suicidal Head: atraumatic, normocephalic Eyes: EOMI, nl conjunctiva, nl lids, nl sclera ENMT: mucosa pink and moist, nl external ears & nose, nl lips & teeth, nl nasal mucosa & septum Neck: non-tender, supple, No bruits, No jvd, No masses, No nuchal rigidity, No other, No thyromegaly Respiratory: clear to auscultation, No congested cough, No crackles/rales, No diminished breath sounds, No intercostal retraction, No labored breathing, No normal air movement, No other, No respirations, No tactile fremitus, No wheezing Cardiovascular: nl pulses, regular rate and rhythm, No S3, No S4, No bruits, No diastolic murmur, No edema, No gallop, No irregular rhythm, No jugular venous distention (JVD), No murmurs/extra sounds, No other, No rub, No systolic murmur Gastrointestinal: nl liver, spleen, non-tender, soft, No ascites, No bowel sounds, No distended, No firm, No hepatomegaly, No mass , No other, No rebound or guarding, No splenomegaly, No surgical scars, No tender Musculoskeletal: nl extremities to inspection, nl gait and stance Extremities: normal pulses, No calf tenderness, No clubbing, No cyanosis, No edema, No other, No palpable cord, No pitting pedal edema, No tenderness Neurological: [employer] II-XII intact, nl mental status, nl speech, nl strength, No DTR's symmetric, No confused, No focal weakness, No lethargic, No numbness , No other, No reflexes, No unresponsive Skin: nl turgor, rash or lesions, No diaphoresis, No ecchymosis, No laceration, No other, No puncture Lymph: nl lymph nodes, No enlarged, No nontender, No other Labs Result Diagram: 01/19/17201901/19/172019 Medications Medications Current Medications Hydromorphone HCl (Dilaudid) 1 mg Q4 PRN IV pain; Start 01/20/17 at 00:30 Ondansetron HCl (Zofran Inj) 4 mg Q4 PRN IV nausea; Start 01/20/17 at 00:30 Amlodipine Besylate (Norvasc) 5 mg DAILY PO ; Start 01/20/17 at 09:00; Status UNV Atorvastatin Calcium (Lipitor) 40 mg QHS PO ; Start 01/20/17 at 21:00; Status UNV Clopidogrel Bisulfate (plaVIX) 75 mg DAILY PO ; Start 01/20/17 at 09:00; Status UNV Methocarbamol (Robaxin) 500 mg Q8 PO ; Start 01/20/17 at 06:00; Status UNV Nitroglycerin (Nitroglycerin (Sl Tab) 0.4 Mg) 1 tab [id number] PRN SL CHEST PAIN ; Start 01/20/17 at 00:30; Status UNV Ranolazine (Ranexa) 1,000 mg Q12 PO ; Start 01/20/17 at 09:00; Status UNV Salmeterol Xinafoate/ Fluticasone (Advair 250/50 Diskus) 1 inh BID INH ; Start 01/20/17 at 09:00; Status UNV Tiotropium [place] (Spiriva) 1 inh DAILY INH ; Start 01/20/17 at 09:00; Status UNV Isosorbide Mononitrate (Imdur) 30 mg DAILY PO ; Start 01/20/17 at 09:00; Status UNV Lorazepam (Ativan) 1 mg Q6H PRN IV ANXIETY; Start 01/20/17 at 01:00; Status UNV Zolpidem Tartrate (Ambien) 10 mg HS PRN PO INSOMNIA; Start 01/20/17 at 01:00; Status UNV Al Hydrox/Mg Hydrox/Simethicone (Mag-Al Plus) 30 ml Q4H PRN PO GASTROINTESTINAL UPSET; Start 01/20/17 at 01:00; Status UNV Pantoprazole (Protonix Tab) 40 mg BID PO ; Start 01/20/17 at 01:00; Status UNV SILVIO SANCHEZ MD Jan 20, 2017 00:53
[2017-01-20 01:23] LABS: CHOL/HDL RATIO 4.5 RATIO
[2017-01-20] MEDS: PANTOPRAZOLE (EC) 40 MG TAB PO SCH ×2 (01:29→17:25)
[2017-01-20 01:32] LABS: D-DIMER 255.48 ng/ml (<460)
[2017-01-20 01:35] LABS: TROPONIN-I 0.062 ng/ml (0.00-0.12)
[2017-01-20] MEDS: SOD CHLORIDE 0.45% 1,000 ML IV SCH ×2 (01:38→09:49)
[2017-01-20 01:47] LABS: CK-MB 0.95 ng/ml (0.0-2.4)
[2017-01-20] MEDS: METHOCARBAMOL 500 MG TAB PO SCH ×2 (06:17→13:57)
[2017-01-20 07:16] LABS: BASOPHILS % 0.4 % (0.0-2.0); EOSINOPHILS # 0.3 10^3/ul (0.0-0.5); HEMATOCRIT 44.5 % (42.0-52.0); LYMPHOCYTES # 2.2 10^3/ul (0.8-2.9); LYMPHOCYTES % 25.7 % (15.0-51.0); MEAN CORPUSCULAR HEMOGLOBIN 27.5 pg (29.0-33.0); MEAN CORPUSCULAR HGB CONC 31.5 g/dl (32.0-37.0); MEAN CORPUSCULAR VOLUME 87.4 fl (82.0-101.0); MEAN PLATELET VOLUME 9.6 fl (7.4-10.4); MONOCYTE # 0.7 10^3/ul (0.3-0.9); MONOCYTES % 7.7 % (0.0-11.0); NEUTROPHIL # 5.3 10^3/ul (1.6-7.5); PLATELET COUNT 175 10^3/UL (140-415); RED BLOOD COUNT 5.09 10^6/ul (4.70-6.10); RED CELL DISTRIBUTION WIDTH 15.2 % (11.5-14.5); WHITE BLOOD COUNT 8.6 10^3/ul (4.8-10.8)
[2017-01-20 07:39] LABS: ALBUMIN 3.3 g/dl (3.3-4.9); ALBUMIN/GLOBULIN RATIO 1.26; BILIRUBIN,INDIRECT 0.4 mg/dl (0-1.1); BILIRUBIN,TOTAL 0.4 mg/dl (0.2-1.3); CALCIUM 8.8 mg/dl (8.4-10.2); CREATININE 0.83 mg/dl (0.61-1.24); MAGNESIUM 1.9 mg/dl (1.7-2.5); POTASSIUM 4.4 mmol/L (3.5-5.1); TOTAL PROTEIN 5.9 g/dl (6.1-8.1)
[2017-01-20 07:51] LABS: CK-MB 1.02 ng/ml (0.0-2.4); TROPONIN-I 0.06 ng/ml (0.00-0.12)
[2017-01-20] MEDS ORDERED: TIOTROPIUM 18 MCG CAPSULE INHA DEV INH SCH (09:00)
[2017-01-20] MEDS ORDERED: ISOSORBIDE MONONITRATE(SR)30 MG TAB PO SCH (09:00)
[2017-01-20] MEDS ORDERED: SALMETEROL/FLUTICASONE 250/50 INHA INH SCH (09:00)
[2017-01-20] MEDS ORDERED: RANOLAZINE (SR) 500 MG TAB PO SCH (09:00)
[2017-01-20] MEDS ORDERED: PANTOPRAZOLE (EC) 40 MG TAB PO SCH (09:00)
[2017-01-20] MEDS ORDERED: AMLODIPINE 5 MG TAB PO SCH (09:00)
[2017-01-20] MEDS ORDERED: CLOPIDOGREL 75 MG TAB PO SCH (09:00)
[2017-01-20] MEDS ORDERED: NICOTINE (14 MG/24 HR) PATCH TRANSDERM SCH (09:00)
--- NOTE | 2017-01-20 16:12 | CONS ---
Date/Time of Note Date/Time of Note DATE: 01/20/17 TIME: 16:03 Assessment/Plan Assessment/Plan Additional Assessment/Plan Chest pain CAD with history of PCI Hypertension Diabetes Dyslipidemia Current tobacco use Anxiety -Patient with extensive cardiac history with multiple PCI's. Last PCI was in August 2016 in the [place] area. As per the patient, he had symptoms of chest discomfort and underwent angiogram and had another stent placed and had no improvement in symptoms afterwards. Patient with nuclear cardiac perfusion study performed at [facility] in June 2016 with inferior infarct no ischemia. Patient underwent cardiac catheterization in April 2016 at [facility], the films were personally reviewed. He had patent stents in his LAD, diagonal and RCA with no obstructive disease. Patient's cardiac catheterization from April 2014 was reviewed as well. It was noted on that study, that patient with severe spasming causing multiple regions of severe stenosis. Patient was given intracoronary nitroglycerin at that time with resolution of stenosis. Unfortunately, patient is still an active smoker. Given serial cardiac enzymes remain negative, ECG remain unremarkable, there is no need for further inpatient cardiac workup at the current time. He also complains of symptoms of abdominal discomfort in his lower abdomen, body aches and feeling tired which is not related to exertion. Would recommend aggressive medical management with combination of vasodilators and smoking cessation. Would continue patient's anticoagulation. Consultation Date/Type/Reason Admit Date/Time Jan 19, 2017 at 23:29 Type of Consultation: cv Reason for Consultation Chest pain Hx of Present Illness This is a 61-year-old male with past medical history of coronary artery disease status post multiple PCI's and angiograms, coronary spasm on indoor and Ranexa, active tobacco use, factor V Leiden who presents with chest spasming, abdominal pain and fatigue. Patient yesterday was walking his dog and had sensation of stabbing and pricking-like sensation in his chest which felt like spasm. He took his [place] and nitro without any improvement. Until patient got Dilaudid, his symptoms did not resolve in the emergency room. Denies any shortness of breath. He does complain of lower abdominal pain which is similar to when he had his "stomach infection" and had to be on antibiotics. 12 point review of systems was performed with all pertinent positives and negatives mentioned above with all else is negative Past Medical History Medical History: angina (chronic stable angina), coronary artery disease, high cholesterol, hypertension, irritable bowel syndrome, other (Factor V Leiden deficiency) Past Surgical History Past Surgical Hx: angioplasty, cholecystectomy Social History Alcohol Use: none Smoking Status: Current every day smoker Drug Use: none Exam/Review of Systems Vital Signs Vitals Vital Signs Date Time Temp Pulse Resp B/P Pulse Ox O2 Delivery O2 Flow Rate FiO2 01/20/17 15:59 98.0 71 19 106/60 99 01/20/17 11:16 Room Air 01/19/17 23:48 2.0 Intake and Output 01/19/17 01/19/17 01/20/17 15:00 23:00 07:00 Intake Total 300 ml Balance 300 ml Exam No apparent distress Constitutional: alert, oriented Head: normocephalic Respiratory: clear to auscultation, normal air movement Cardiovascular: other (S1-S2 heard), regular rate and rhythm Gastrointestinal: bowel sounds, non-tender, soft Extremities: other (No edema) Results Result Diagram: 01/20/17 0656 01/20/17 0656 Results 24 hrs Laboratory Tests Test 01/19/17 20:20 01/20/17 00:52 01/20/17 06:56 White Blood Count 8.4 8.6 Red Blood Count 5.37 5.09 Hemoglobin 14.8 14.0 Hematocrit 46.3 44.5 Mean Corpuscular Volume 86.2 87.4 Mean Corpuscular Hemoglobin 27.6 L 27.5 L Mean Corpuscular Hemoglobin Concent 32.0 31.5 L Red Cell Distribution Width 15.4 H 15.2 H Platelet Count 208 # 175 Mean Platelet Volume 9.9 9.6 Neutrophils % 66.0 62.0 Lymphocytes % 22.2 25.7 Monocytes % 8.0 7.7 Eosinophils % 3.2 4.0 Basophils % 0.4 0.4 Nucleated Red Blood Cells % 0.0 0.0 Neutrophils # 5.5 5.3 Lymphocytes # 1.9 2.2 Monocytes # 0.7 0.7 Eosinophils # 0.3 0.3 Basophils # 0.0 0.0 Nucleated Red Blood Cells # 0.0 0.0 Sodium Level 145 H 143 Potassium Level 4.5 4.4 Chloride Level 111 H 110 Carbon Dioxide Level 26 28 Anion Gap 13 9 Blood Urea Nitrogen 12 10 Creatinine 0.85 0.83 Glucose Level 108 82 Calcium Level 9.2 8.8 Total Bilirubin 0.2 0.4 Direct Bilirubin 0.00 0.00 Indirect Bilirubin 0.2 0.4 Aspartate Amino Transf (AST/SGOT) 19 16 Alanine Aminotransferase (ALT/SGPT) 34 39 Alkaline Phosphatase 47 44 Troponin I 0.049 0.062 0.060 Total Protein 6.7 5.9 L Albumin 3.7 3.3 Globulin 3.00 2.60 Albumin/Globulin Ratio 1.23 1.26 Lipase 35 D-Dimer 255.48 D-Dimer Comment Creatine Kinase 93 87 Creatine Kinase Index 1.0 1.2 Creatinine Kinase MB (Mass) 0.95 1.02 Triglycerides Level 98 Cholesterol Level 149 LDL Cholesterol, Calculated 96 HDL Cholesterol 33 Cholesterol/HDL Ratio 4.5 Magnesium Level 1.9 Medications Medications Current Medications Hydromorphone HCl (Dilaudid) 1 mg Q4 PRN IV pain Last administered on 13:58; Admin Dose 1 MG; Start 01/20/17 at 00:30 Ondansetron HCl (Zofran Inj) 4 mg Q4 PRN IV nausea Last administered on 09:57; Admin Dose 4 MG; Start 01/20/17 at 00:30 Amlodipine Besylate (Norvasc) 5 mg DAILY PO Last administered on 01/20/17 09: 48; Admin Dose 5 MG; Start 01/20/17 at 09:00 Atorvastatin Calcium (Lipitor) 40 mg QHS PO ; Start 01/20/17 at 21:00 Clopidogrel Bisulfate (plaVIX) 75 mg DAILY PO Last administered on 01/20/17 09:48; Admin Dose 75 MG; Start 01/20/17 at 09:00 Methocarbamol (Robaxin) 500 mg Q8 PO Last administered on 01/20/17 13:57; Admin Dose 500 MG; Start 01/20/17 at 06:00 Nitroglycerin (Nitroglycerin (Sl Tab) 0.4 Mg) 1 tab [id number] PRN SL CHEST PAIN ; Start 01/20/17 at 00:30 Ranolazine (Ranexa) 1,000 mg Q12 PO Last administered on 01/20/17 09:48; Admin Dose 1,000 MG; Start 01/20/17 at 09:00 Salmeterol Xinafoate/ Fluticasone (Advair 250/50 Diskus) 1 inh BID INH Last administered on 01/20/17 09:49; Admin Dose 1 INH; Start 01/20/17 at 09:00 Tiotropium [place] (Spiriva) 1 inh DAILY INH Last administered on 01/20/17 09 :48; Admin Dose 1 INH; Start 01/20/17 at 09:00 Isosorbide Mononitrate (Imdur) 30 mg DAILY PO Last administered on 01/20/17 09:49; Admin Dose 30 MG; Start 01/20/17 at 09:00 Lorazepam (Ativan) 1 mg Q6H PRN IV ANXIETY; Start 01/20/17 at 01:00 Zolpidem Tartrate (Ambien) 10 mg HS PRN PO INSOMNIA Last administered on 01:29; Admin Dose 10 MG; Start 01/20/17 at 01:00 Al Hydrox/Mg Hydrox/Simethicone (Mag-Al Plus) 30 ml Q4H PRN PO GASTROINTESTINAL UPSET; Start 01/20/17 at 01:00 Pantoprazole 40 mg 40 mg BID@06,18 PO Last administered on 01/20/17 01:29; Admin Dose 40 MG; Start 01/20/17 at 01:00 Sodium Chloride (1/2 NS) 1,000 ml @ 100 mls/hr Q10H IV Last administered on 09:49; Admin Dose 100 MLS/HR; Start 01/20/17 at 01:30 Nicotine (Nicoderm 14 Mg/ 24hr) 1 patch DAILY TRANSDERM Last administered on 09:49; Admin Dose 1 PATCH; Start 01/20/17 at 09:00 Procedures Procedures ECG done yesterday demonstrates sinus tachycardia 109 bpm, QRS 92 ms, nonspecific ST abnormalities, inferior Q waves Vidal Ochoa DO Jan 20, 2017 16:12
[2017-01-20] MEDS ORDERED: HYDROCODONE/APAP (5/325) TAB PO PRN (16:30)
--- NOTE | 2017-01-20 16:51 | PDOCDIS ---
Discharge Instructions CONDITION Patient Condition: Stable HOME CARE INSTRUCTIONS: Diet Instructions: Low Fat /Cholesterol ACTIVITY: Activity Restrictions: Slowly Increase Activity FOLLOW UP/APPOINTMENTS Follow-up Plan Follow up with PCP within 1 week Follow up with Cardiology within 1 to 2 weeks Needs to stop smoking FELICIANO HERNANDEZ Jan 20, 2017 16:51
[2017-01-20] MEDS ORDERED: PANT40TA4 PO (16:52)
[2017-01-20] MEDS ORDERED: HYDR-3498 PO (16:52)
--- NOTE | 2017-01-20 17:24 | DS ---
Date/Time of Note Date/Time of Note DATE: 01/20/17 TIME: 17:14 Discharge Summary Admission/Discharge Info Admit Date/Time Jan 19, 2017 at 23:29 Discharge Date/Time 01/20/17 Discharge Diagnosis 1. Chronic angina and chronic chest pain secondary to vasospasms 2. Gastritis, known H. pylori gastritis status post treatment 2 months ago. 3. Tobacco use 4. Coronary artery disease 5. COPD 6. Hyperlipidemia 7. Factor V Leyden deficiency, on Xarelto chronically Patient Condition: Stable Consults Cardiology, Dr. Ochoa Procedures None Hx of Present Illness This is a 61-year-old man with significant medical illness of CAD S/P PCI in and again in [place] per patient this year ,GERD,chronic stable angina on Ranexa,GERD,Panic/anxiety disorder who is admitted here due to acute mid sternal exertional nonradiating chest pain similar multiple previous episodes, he went home and trying to rest and took nitroglycerin twice and [place] for pain without good result at home . He denied fever nor chill. The chest pain was not related to feeling nauseated but short of breath. No PND nor orthopnea. He has this on a regular basis and it is associated with anxiety, although the patient does have coronary artery disease and factor V Leyden deficiency. He denies cough, no calf or leg swelling, no fevers or chills, no vomiting or diarrhea. He stated that he has been having epigastric pain off and on for a few months. MRI showed normal MRCP but fatty liver. Negative stress test on 02/15/2016 CTA Negative on 04/22/2016 Echocardiogram done 11/2016 showed normal EF . Normal LV size without valvular abnormality. Hospital Course Patient was admitted to telemetry, EKG is unchanged, unchanged on telemetry also. Patient claimed that his muscle spasms are relieved by Dilaudid. He notes he has cardiac muscle spasms and chronic angina. He still smoking despite COPD and cardiac disease and cardiac vasospasms. He does have anxiety disorder. He has been ruled out for acute coronary syndrome and evaluated by cardiology Dr. Ochoa, patient does not need any further cardiac workup. He claims he is still having epigastric pain, he has known gastritis and H. pylori which was treated already couple of months ago, he is to remain on proton pump inhibitors however and follow-up with gastroenterology, he says that he has followed up with gastroenterology and they have not done much for him in the past, it seems to be a pattern however with this patient. For his chest pain and vasospasms he has seen cardiology multiple times as an outpatient but always claimed are not doing anything for him even when he knows that there is no indication to do angiogram. Again he is complaining that gastroenterology has not done anything for him but he has been treated for H. pylori gastritis and needs to remain on proton pump inhibitors. Ultimately I told him that he needs to be more compliant and stop smoking as it may be the only intervention on his part that may improve his current symptoms at least on the long-term. Home Meds Active Scripts Pantoprazole* (Pantoprazole*) 40 Mg Tablet.dr, 40 MG PO DAILY for 30 Days Prov:DAVIDFELICIANO Paulino 01/20/17 Hydrocodone Bit-Acetaminophen (Hydrocodone Bit-APAP) 5-325MG Tablet, 1 TAB PO Q6H Y for PAIN LEVEL 6-10, #20 TAB Prov:FELICIANO HERNANDEZ 01/20/17 Atorvastatin* (Atorvastatin*) 40 Mg Tablet, 40 MG PO QHS, #30 TAB Prov:DAVID,NRachaelSHAWVASU Stewart 11/21/16 Albuterol Sulfate* (Ventolin HFA*) 18 Gm Hfa.aer.ad, 2 PUFF INH Q6HWA RESP THERAPY Y for SHORTNESS OF BREATH, #1 INHALER Prov:DAVIDFELICIANO Paulino 11/21/16 Tiotropium Branscomb* (Spiriva*) 18 Mcg Cap.w.dev, 1 INH INH DAILY, #1 INHALER 3 Refills Prov:DAVIDFELICIANO Paulino 11/21/16 Methocarbamol* (Robaxin*) 500 Mg Tab, 500 MG PO Q8, #14 TAB Prov:KIESHA BOLAND DO 07/08/16 Amlodipine Besylate* (Amlodipine Besylate*) 5 Mg Tablet, 5 MG PO DAILY for 30 Days, TAB 3 Refills Prov:DAVIDFELICIANO Paulino 04/25/16 Clopidogrel Bisulfate (Clopidogrel) 75 Mg Tablet, 75 MG PO DAILY for 30 Days, TAB 3 Refills Prov:FELICIANO HERNANDEZ 04/25/16 Ranolazine* (Ranexa*) 500 Mg Tab.sr.12h, 1000 MG PO Q12 for 30 Days, TAB 3 Refills Prov:FELICIANO HERNANDEZ 04/25/16 Salmeterol Xinaf/Fluticasone* (Advair*) 250-50 Diskus Inhaler, 1 INH INH BID for 30 Days, 3 Refills Prov:FELICIANO HERNANDEZ 04/25/16 Isosorbide Dinitrate* (Isordil*) 10 Mg Tablet, 10 MG PO TID for 30 Days, TAB Prov:HARMONY HOPKINSLANA 01/12/16 Reported Medications Nitroglycerin* (Nitrostat*) 0.4 Mg Tab.subl, 0.4 MG SL Q5MIN Y for CHEST PAIN, BOTTLE 09/21/15 Rivaroxaban* (Xarelto*) 10 Mg Tablet, 10 MG PO DAILY, TAB 08/20/15 Discontinued Scripts Pantoprazole* (Pantoprazole*) 40 Mg Tablet.dr, 40 MG PO BID for 13 Days Prov:FELICIANO HERNANDEZ 11/21/16 Azithromycin* (Azithromycin*) 250 Mg Tablet, 1000 MG PO DAILY for 1 Day, TAB 4 tabs (1000 mg) on 11/23 Prov:FELICIANO HERNANDEZ 11/21/16 Amoxicillin* (Amoxicillin*) 500 Mg Cap, 1000 MG PO Q12 for 13 Days, CAP Prov:FELICIANO HERNANDEZ 11/21/16 Follow-up Plan Follow up with PCP within 1 week Follow up with Cardiology within 1 to 2 weeks Needs to stop smoking Primary Care Provider Jimbo Heard Time spent on discharge: > 30 minutes Pending Labs Laboratory Tests Test 01/19/17 20:20 01/20/17 00:52 01/20/17 06:56 White Blood Count 8.410^3/ul (4.8-10.8) 8.610^3/ul (4.8-10.8) Red Blood Count 5.3710^6/ul (4.70-6.10) 5.0910^6/ul (4.70-6.10) Hemoglobin 14.8g/dl (14.0-18.0) 14.0g/dl (14.0-18.0) Hematocrit 46.3% (42.0-52.0) 44.5% (42.0-52.0) Mean Corpuscular Volume 86.2fl (82.0-101.0) 87.4fl (82.0-101.0) Mean Corpuscular Hemoglobin 27.6pg (29.0-33.0) 27.5pg (29.0-33.0) Mean Corpuscular Hemoglobin Concent 32.0g/dl (32.0-37.0) 31.5g/dl (32.0-37.0) Red Cell Distribution Width 15.4% (11.5-14.5) 15.2% (11.5-14.5) Platelet Count 48543^3/UL (140-415) 90494^3/UL (140-415) Mean Platelet Volume 9.9fl (7.4-10.4) 9.6fl (7.4-10.4) Neutrophils % 66.0% (39.0-77.0) 62.0% (39.0-77.0) Lymphocytes % 22.2% (15.0-51.0) 25.7% (15.0-51.0) Monocytes % 8.0% (0.0-11.0) 7.7% (0.0-11.0) Eosinophils % 3.2% (0.0-7.0) 4.0% (0.0-7.0) Basophils % 0.4% (0.0-2.0) 0.4% (0.0-2.0) Nucleated Red Blood Cells % 0.0/100WBC (0.0-0.0) 0.0/100WBC (0.0-0.0) Neutrophils # 5.510^3/ul (1.6-7.5) 5.310^3/ul (1.6-7.5) Lymphocytes # 1.910^3/ul (0.8-2.9) 2.210^3/ul (0.8-2.9) Monocytes # 0.710^3/ul (0.3-0.9) 0.710^3/ul (0.3-0.9) Eosinophils # 0.310^3/ul (0.0-0.5) 0.310^3/ul (0.0-0.5) Basophils # 0.010^3/ul (0.0-0.1) 0.010^3/ul (0.0-0.1) Nucleated Red Blood Cells # 0.010^3/ul (0.0-0.0) 0.010^3/ul (0.0-0.0) Sodium Level 145mmol/L (135-144) 143mmol/L (135-144) Potassium Level 4.5mmol/L (3.5-5.1) 4.4mmol/L (3.5-5.1) Chloride Level 111mmol/L (97-110) 110mmol/L (97-110) Carbon Dioxide Level 26mmol/L (21-31) 28mmol/L (21-31) Anion Gap 13 (8-16) 9 (8-16) Blood Urea Nitrogen 12mg/dl (7-20) 10mg/dl (7-20) Creatinine 0.85mg/dl (0.61-1.24) 0.83mg/dl (0.61-1.24) Glucose Level 108mg/dl (70-220) 82mg/dl (70-220) Calcium Level 9.2mg/dl (8.4-10.2) 8.8mg/dl (8.4-10.2) Total Bilirubin 0.2mg/dl (0.2-1.3) 0.4mg/dl (0.2-1.3) Direct Bilirubin 0.00mg/dl (0.00-0.20) 0.00mg/dl (0.00-0.20) Indirect Bilirubin 0.2mg/dl (0-1.1) 0.4mg/dl (0-1.1) Aspartate Amino Transf (AST/SGOT) 19IU/L (15-46) 16IU/L (15-46) Alanine Aminotransferase (ALT/SGPT) 34IU/L (13-69) 39IU/L (13-69) Alkaline Phosphatase 47IU/L (42-121) 44IU/L (42-121) Troponin I 0.049ng/ml (0.00-0.12) 0.062ng/ml (0.00-0.12) 0.060ng/ml (0.00-0.12) Total Protein 6.7g/dl (6.1-8.1) 5.9g/dl (6.1-8.1) Albumin 3.7g/dl (3.3-4.9) 3.3g/dl (3.3-4.9) Globulin 3.00g/dl (1.3-3.2) 2.60g/dl (1.3-3.2) Albumin/Globulin Ratio 1.23 1.26 Lipase 35U/L (23-300) D-Dimer 255.48ng/ml (<460) D-Dimer Comment Creatine Kinase 93IU/L (23-200) 87IU/L (23-200) Creatine Kinase Index 1.0 1.2 Creatinine Kinase MB (Mass) 0.95ng/ml (0.0-2.4) 1.02ng/ml (0.0-2.4) Triglycerides Level 98mg/dl (0-149) Cholesterol Level 149mg/dl (100-200) LDL Cholesterol, Calculated 96mg/dl HDL Cholesterol 33mg/dl (30-78) Cholesterol/HDL Ratio 4.5RATIO Magnesium Level 1.9mg/dl (1.7-2.5) FELICIANO HERNANDEZ Jan 20, 2017 17:24
[2017-01-20] MEDS ORDERED: HYDROmorphONE 0.5 MG/0.5 ML SYG IV PRN (17:30)
[2017-01-20] MEDS ORDERED: ATORVASTATIN 40 MG TAB PO SCH (21:00)
== END 2017-01-20 17:43 | disposition home or self-care (01) | DRG 311 ==
LOC: E/R 17:50 → MS4 23:29
PROVIDERS: ADMIT Hospitalist; ATTEND Hospitalist
DX: I20.9 Angina pectoris, unspecified (principal); D68.51 Activated protein C resistance; J44.9 Chronic obstructive pulmonary disease, unspecified; F41.9 Anxiety disorder, unspecified; R07.9 Chest pain, unspecified; G89.29 Other chronic pain; I73.9 Peripheral vascular disease, unspecified; K29.70 Gastritis, unspecified, without bleeding; Z72.0 Tobacco use; I25.10 Atherosclerotic heart disease of native coronary artery without angina pectoris; E78.5 Hyperlipidemia, unspecified; E11.9 Type 2 diabetes mellitus without complications; I10 Essential (primary) hypertension
CPT/HCPCS: 36415; 80053; 80061; 82550; 82553; 83690; 83735; 84484; 85025; 85378; 93005; 96374; J1170; J2405; J7040

== ENCOUNTER 2017-03-23 12:55 | Emergency (ER) | END 2017-03-23 23:20 | disposition short-term general hospital (02) ==

== ENCOUNTER 2017-05-02 22:27 | Emergency (ER) | END 2017-05-03 17:05 | disposition home or self-care (01) ==

== ENCOUNTER 2017-06-11 00:40 | Observation (INO) | END 2017-06-11 17:20 | disposition home or self-care (01) ==

== ENCOUNTER 2017-07-13 13:52 | Observation (INO) | END 2017-07-14 14:41 | disposition home or self-care (01) ==

== ENCOUNTER 2017-08-08 22:16 | Emergency (ER) | END 2017-08-09 01:47 | disposition home or self-care (01) ==